=== PATIENT | female | born 1990 | race Two or more races ===

== ENCOUNTER 2018-12-17 14:26 | Emergency (ER) | payer MEDICAID ==
[2018-12-17 15:11] VITALS: BP 147/77
--- NOTE | 2018-12-17 15:23 | ER Document Report ---
ED Medical Screen (RME) - General Chief Complaint: Vaginal Bleeding Stated Complaint: VAGINAL BLEEDING Time Seen by Provider: 12/17/18 15:21 Mode of Arrival: Ambulatory Information source: Patient Notes: 28-year-old female presented to ED for complaint of vaginal pain spotting abdominal pain upper and lower abdomen. She states this started this morning she states she is about 2 months last menstrual period was October 21. She is alert oriented respirations regular and unlabored speaking in full sentences walks with a even steady gait. I have greeted and performed a rapid initial assessment of this patient. A comprehensive ED assessment and evaluation of the patient, analysis of test results and completion of medical decision making process will be conducted by an additional ED providers. Dictation of this chart was performed using voice recognition software; therefore, there may be some unintended grammatical errors. TRAVEL OUTSIDE OF THE [place] IN LAST 30 DAYS: No - Related Data Allergies/Adverse Reactions: No Known Allergies Allergy (Verified 03/02/14 09:31) Past Medical History - Immunizations Immunizations up to date: Yes Hx Diphtheria, Pertussis, Tetanus Vaccination: Yes Physical Exam - Vital signs Vitals: Temp Pulse Resp BP Pulse Ox 98.7 F 90 16 147/77 H 100 12/17/18 15:11 12/17/18 15:11 12/17/18 15:11 12/17/18 15:11 12/17/18 15:11 Course - Vital Signs Vital signs: Temp Pulse Resp BP Pulse Ox 98.7 F 90 16 147/77 H 100 12/17/18 15:11 12/17/18 15:11 12/17/18 15:11 12/17/18 15:11 12/17/18 15:11
== END 2018-12-17 16:25 | disposition left against medical advice (07) ==
LOC: ER 14:26
DX: N93.8 Other specified abnormal uterine and vaginal bleeding (principal); R10.30 Lower abdominal pain, unspecified; R10.10 Upper abdominal pain, unspecified
CPT/HCPCS: 99281

== ENCOUNTER 2019-04-02 20:48 | Emergency (ER) | payer OTHER, MEDICAID ==
[2019-04-02] MEDS ORDERED: ACETAMINOPHEN 325 MG TABLET PO ONE (21:10)
[2019-04-02] MEDS ORDERED: KETOROLAC TROMETHAMINE 60 MG/2 ML SDV IM ONE (21:54)
[2019-04-02] MEDS ORDERED: DEXAMETHASONE SOD PHOS INJ 10 MG/1 ML VIAL IM ONE (21:54)
--- NOTE | 2019-04-02 22:02 | ER Document Report ---
ED ENT - General Chief Complaint: Fever Stated Complaint: FEVER,HEADACHE,SORE THROAT Time Seen by Provider: 04/02/19 21:47 Mode of Arrival: Wheelchair Information source: Patient Notes: 29-year-old female presents to ED for complaint of sore throat headache fever. Her son was diagnosed with strep yesterday. She states that she also feels like she has strep. States that the symptoms started today. She is alert oriented respirations regular and unlabored, taking in full sentences. She is able to walk with a even gait. TRAVEL OUTSIDE OF THE [place] IN LAST 30 DAYS: No - HPI Patient complains to provider of: Throat problem, Other - Headache and body aches Onset: This morning Onset/Duration: Gradual, Better - Better than when she got to Tylenol Quality of pain: Achy Severity: Moderate Pain Level: 3 Context: Recent Illness Location of pain: Throat Associated symptoms: Fever, Headache, Runny nose, Sore throat, Swollen glands Similar symptoms previously: Yes Recently seen / treated by doctor: No - Related Data Allergies/Adverse Reactions: No Known Allergies Allergy (Verified 03/02/14 09:31) Past Medical History - General Information source: Patient - Social History Smoking Status: Never Smoker Frequency of alcohol use: None Drug Abuse: None Lives with: Family Family History: None - patient states no. denies: Arthritis, CAD, CVA, DM, Hyperlipidemia, Hypertension, Malignancy, Thyroid Disfunction - Past Medical History Cardiac Medical History: Reports: None Pulmonary Medical History: Reports: None EENT Medical History: Reports: None Neurological Medical History: Reports: None Endocrine Medical History: Reports: None Renal/ Medical History: Reports: None Malignancy Medical History: Reports: None GI Medical History: Reports: None Musculoskeletal Medical History: Reports None Skin Medical History: Reports None Psychiatric Medical History: Reports: None Traumatic Medical History: Reports: None Infectious Medical History: Reports: None Surgical Hx: Negative Past Surgical History: Reports: None - Immunizations Immunizations up to date: Yes Hx Diphtheria, Pertussis, Tetanus Vaccination: Yes Review of Systems - Review of Systems Constitutional: Chills, Fever, Recent illness EENT: Throat pain Cardiovascular: No symptoms reported Respiratory: No symptoms reported Gastrointestinal: No symptoms reported Genitourinary: No symptoms reported Female Genitourinary: No symptoms reported Musculoskeletal: Muscle pain - Body aches Skin: No symptoms reported Hematologic/Lymphatic: No symptoms reported Neurological/Psychological: Headaches -: Yes All other systems reviewed and negative Physical Exam - Vital signs Vitals: Temp Pulse Resp BP Pulse Ox 102.7 F H 130 H 18 134/68 H 94 04/02/19 20:54 04/02/19 20:54 04/02/19 20:54 04/02/19 20:54 04/02/19 20:54 Interpretation: Normal, Tachycardic, Febrile - General General appearance: Appears well, Alert - HEENT Head: Normocephalic, Atraumatic Eyes: Normal Pupils: PERRL Ears: Normal External canal: Normal Tympanic membrane: Normal Sinus: Normal Nasal: Swelling, Clear rhinorrhea Mouth/Lips: Normal Pharynx: Erythema Neck: Normal - Respiratory Respiratory status: No respiratory distress Chest status: Nontender Breath sounds: Normal Chest palpation: Normal - Cardiovascular Rhythm: Regular Heart sounds: Normal auscultation Murmur: No - Abdominal Inspection: Normal Distension: No distension Bowel sounds: Normal Tenderness: Nontender Organomegaly: No organomegaly - Back Back: Normal, Nontender - Extremities General upper extremity: Normal inspection, Nontender, Normal color, Normal ROM, Normal temperature General lower extremity: Normal inspection, Nontender, Normal color, Normal ROM, Normal temperature, Normal weight bearing. No: Aura's sign - Neurological Neuro grossly intact: Yes Cognition: Normal Orientation: AAOx4 Lesly Coma Scale Eye Opening: Spontaneous Lesly Coma Scale Verbal: Oriented Jackson Coma Scale Motor: Obeys Commands Jackson Coma Scale Total: 15 Speech: Normal Motor strength normal: LUE, RUE, LLE, RLE Sensory: Normal - Psychological Associated symptoms: Normal affect, Normal mood - Skin Skin Temperature: Warm Skin Moisture: Dry Skin Color: Normal Course - Re-evaluation Re-evalutation: 04/03/19 00:22 After performing a Medical Screening Examination, I estimate there is LOW risk for ACUTE GLAUCOMA, TEMPORAL ARTERITIS, MENINGITIS, INCRANIAL HEMORRHAGE, or ISCHEMIC STROKE thus I consider the discharge disposition reasonable. I have reevaluated this patient multiple times and no significant life threatening changes are noted. The patient and I have discussed the diagnosis and risks, and we agree with discharging home with close follow-up with the understanding that symptoms and presentations can change. We also discussed returning to the Emergency Department immediately if new or worsening symptoms occur. We have discussed the symptoms which are most concerning (e.g., changing or worsening symptoms, new numbness or weakness, vomiting, fever) that necessitate immediate return. 04/03/19 00:22 Patient had a elevated temp pulse with a sore throat runny nose congestion. Treated with Decadron and Toradol while awaiting strep test. Strep test came back negative. Patient was discharged home and instructed that if the symptoms became any worse to come back to the emergency room. There was no airway compromise. Patient was also informed that the culture would be done and if it came back positive she would be ordered antibiotics. Patient instructed to follow-up with her primary care doctor. Patient verbalized understanding and agreement with treatment plan before being discharged. Patient was afebrile and drinking fluids as well as ate a popsicle before discharge. Patient tolerated fluids well. - Vital Signs Vital signs: Temp Pulse Resp BP Pulse Ox 98.6 F 98 20 124/62 99 04/02/19 22:50 04/02/19 22:50 04/02/19 22:50 04/02/19 22:50 04/02/19 22:50 Discharge - Discharge Clinical Impression: Viral sore throat Head ache Qualifiers: Headache type: unspecified Headache chronicity pattern: unspecified pattern Intractability: not intractable Qualified Code(s): R51 - Headache Condition: Stable Disposition: HOME, SELF-CARE Instructions: Family Physicians / Practices Additional Instructions: HEADACHE: The physician does not feel that the headache you are experiencing has a serious underlying cause. Most headaches are due to emotional stress, with resultant muscle tension (tension headache). Occasionally, headaches are secondary to changes in the blood vessels of the scalp (vascular headache and migraine headache). Sometimes, a headache is the first symptom of another developing illness, such as a viral infection. You have no evidence of stroke, bleeding, meningitis, or other serious cause of your headache. The treatment of headaches varies with the severity and cause of the pain. Not all headaches need pain shots. In fact, there is evidence that using narcotics for headaches may make them worse in the long run. The physician will determine the therapy that's in your best interest. If you develop a fever, if the headache is different from any you've previo usly experienced, or if the headache progressively worsens, then call your physician at once or go to the emergency room. SORE THROAT: Sore throats may be caused by viruses, bacteria, or fungi. Most are due to a virus, and must get better on their own. Bacterial sore throats, particularly those due to "strep," need treatment with antibiotics. If an antibiotic is prescribed, be sure to take the medication for a full 10 days. Failure to take the antibiotic can result in complications such as rheumatic fever. Sometimes, an injection of antibiotics is given instead of pills or liquid. This single "shot" is equal in effectiveness to the oral medication. To relieve symptoms, take acetaminophen for pain. Sip clear liquids frequently, or eat popsicles or ice chips. Anesthetic sprays or lozenges may help. Make sure the air in the room is not too dry. Avoid using decongestants or antihistamines. Call the doctor if there is no improvement in two days, or if you have difficulty breathing, increasing throat pain, high fever, rash, or frequent vomiting. STEROID MEDICATION: You have been given a medicine of the cortisone/steroid class. This medication is used to control inflammation or allergy. It is usually only given for a short period of time, until the acute process subsides. There are usually no side effects from short-term use of cortisone-like medications. Some persons feel an increased sense of well-being and are not sleepy at bedtime. Long-term use of cortisone medications is best avoided, unless required for a severe condition. If your condition does not remit, or relapses after the course of corticosteroid medication, you should consult your physician. USE OF DIPHENHYDRAMINE: Diphenhydramine (Benadryl) is an antihistamine and has been recommended to help treat your headache and to prevent side effects of other medications used to treat headaches. The medication can be repeated four times daily. Age Elixir (12.5 mg/tsp) 25 mg pill adult 1-2 tabs Antihistamines may cause drowsiness, especially with the first dose. Do not operate machinery or drive while under the effects of the medication. Do not combine the medication with alcohol, or with any other medication without talking to your doctor. ANTINAUSEA MEDICATION: You have been given a medication to suppress nausea and vomiting. This type of medication can be given as a shot, pill, or suppository. It will usually last for many hours. Pills and shots usually last six to eight hours, suppositories last about 12 hours. For the typical illness, only one or two doses of the medication may be necessary. Mild lightheadedness may occur. This type of medicine can cause drowsiness . Do not drive or operate dangerous machinery while under its influence. Do not mix with alcohol. See your doctor at once if you have muscle spasms or tightness, or uncontrollable motions (particularly of the neck, mouth, or jaw). Persistent vomiting or severe lightheadedness should also be evaluated by the physician. COMPAZINE FOR HEADACHE: You have received therapy for headaches, using Compazine. This treatment is dramatically successful in relieving the headache in about 50 percent of cases. When it works, it provides a rapid method of eliminating the headache without resorting to narcotics (and the problems associated with them). Most patients still feel fully alert after the Compazine, but others may be slightly drowsy. It's best not to drive or work with machinery for six to eight hours. Do not take alcohol or other medication unless you discuss it with the doctor. If you develop tightness and spasms in your muscles, especially the neck and tongue, you should return. This is a side effect which can be treated. TORADOL INJECTION: You have been given an injection of ketorolac tromethamine (Toradol). This is an excellent, safe drug for pain control. It also has potent antiinflammatory action. You should have significant pain relief within about one hour. Toradol is not addicting and is non-sedating. It does not interfere with driving or work. Call or return if you develop itching, hives, shortness of breath, or rash. FOLLOW-UP CARE: If you have been referred to a physician for follow-up care, call the physicians office for an appointment as you were instructed or within the next two days. If you experience worsening or a significant change in your symptoms, notify the physician immediately or return to the Emergency Department at any time for re-evaluation. Prescriptions: Prochlorperazine Maleate [Compazine 10 mg Tablet] 10 mg PO Q6HP PRN #10 tablet PRN Reason: Forms: Elevated Blood Pressure, Return to Work
[2019-04-02] MEDS ORDERED: DIPHENHYDRAMINE HCL 50 MG CAPSULE PO ONE (22:47)
[2019-04-02] MEDS ORDERED: PROCHLORPERAZINE MALEATE 10 MG TABLET PO ONE (22:47)
[2019-04-02 22:54] VITALS: BP 124/62
== END 2019-04-02 23:00 | disposition home or self-care (01) ==
LOC: ER 20:48
DX: J02.9 Acute pharyngitis, unspecified (principal); B97.89 Other viral agents as the cause of diseases classified elsewhere; R51 Headache; R50.9 Fever, unspecified; R09.89 Other specified symptoms and signs involving the circulatory and respiratory systems
CPT/HCPCS: 99283; 96372; 87070; 87880; J1885; S0183; J1100

== ENCOUNTER 2020-03-16 14:22 | Emergency (ER) | payer BC, MEDICAID, OTHER ==
[2020-03-16 14:52] VITALS: BP 128/78
[2020-03-16] MEDS ORDERED: ACETAMINOPHEN 325 MG TABLET PO ONE (15:12)
[2020-03-16] MEDS ORDERED: NORMAL SALINE 1000 ML 1,000 ML IV ONE (15:30)
[2020-03-16] MEDS ORDERED: DEXAMETHASONE 4 MG TABLET PO ONE (15:30)
--- NOTE | 2020-03-16 15:33 | ER Document Report ---
ED ENT - General Chief Complaint: Sore Throat Stated Complaint: SORE THROAT,FEVER Time Seen by Provider: 03/16/20 15:12 Notes: 29-year-old female with no reported past medical history presenting today with sore throat for 1 day. States that this has presented in the past 2 to 3 years ago presented the same way with fever. She does not feel feverish. States she does have chills. She denies any cough, chest pain or additional symptoms at this time. Last took a ibuprofen this morning at 530. TRAVEL OUTSIDE OF THE [place] IN LAST 30 DAYS: No - Related Data Allergies/Adverse Reactions: No Known Allergies Allergy (Verified 03/16/20 14:49) Past Medical History - Social History Smoking Status: Never Smoker Chew tobacco use (# tins/day): No Frequency of alcohol use: None Drug Abuse: None Family History: None - patient states no. denies: Arthritis, CAD, CVA, DM, Hyperlipidemia, Hypertension, Malignancy, Thyroid Disfunction Patient has homicidal ideation: No - Past Medical History Cardiac Medical History: Reports: Hx Hypertension - Renal/ Medical History: Denies: Hx Peritoneal Dialysis - Immunizations Immunizations up to date: Yes Hx Diphtheria, Pertussis, Tetanus Vaccination: Yes Review of Systems - Review of Systems Constitutional: See HPI EENT: See HPI Cardiovascular: No symptoms reported Respiratory: No symptoms reported Gastrointestinal: No symptoms reported Genitourinary: No symptoms reported Female Genitourinary: No symptoms reported Musculoskeletal: No symptoms reported Skin: No symptoms reported Hematologic/Lymphatic: No symptoms reported Neurological/Psychological: No symptoms reported Physical Exam - Vital signs Vitals: Temp 103.2 F H 03/16/20 14:41 Interpretation: Tachycardic, Febrile - Notes Notes: Adult General: GENERAL: Alert, interacts well. No acute distress HEAD: Normocephalic, atraumatic EYES: Pupils equal, round and reactive to light. Extraocular movements intact. ENT: Oral mucosa moist, tongue midline. Bilateral swollen tonsils with exudate. Airway patent. Nares patent, sinuses nontender, ear canals unremarkable, TMs intact. No Trismus. NECK: Full range of motion. Supple. Trachea midline. No lymphadenopathy. LUNGS: Clear to auscultation bilaterally, no wheezes, rales, or rhonchi. No respiratory distress. Nontender chest wall. HEART: Regular rate and rhythm. No murmurs, rubs or gallops. ABDOMEN: Soft, nontender. Nondistended. Bowel sounds present in all 4 quadrants. GENITOURINARY: Deferred EXTREMITIES: Moves all 4 extremities spontaneously. No cyanosis. BACK: No cervical, thoracic, lumbar midline tenderness. Moves all extremities with full range of motion. NEUROLOGICAL: Alert and oriented x3. Normal speech. Strength 5/ 5 in all extremities. PSYCH: Normal affect, normal mood. SKIN: Warm, dry, normal turgor. No rashes or lesions noted. Course - Re-evaluation Re-evalutation: 03/16/20 17:02 Patient's temperature has decreased down to 98.6 after giving her tylenol. Heart rate has decreased significantly to 96 after IV fluids. Patient reports that she is feeling much better. Does not feel fevers or chills. Informed her that her strep test is positive. I have gone ahead and ordered her penicillin IM. Recommend she takes tylenol 1000mg tid. I discussed return precautions with the patient to include worsening symptoms or development of new symptoms. Patient acknowledges and verbalizes understanding of instructions and plan. All questions answered - Vital Signs Vital signs: Temp Pulse Resp BP Pulse Ox 98.6 F 96 128/78 H 100 03/16/20 16:52 03/16/20 16:52 03/16/20 14:43 03/16/20 14:43 Discharge - Discharge Clinical Impression: Strep throat Condition: Stable Disposition: HOME, SELF-CARE Instructions: Acetaminophen, Fever ([facility]), Penicillin V K ([facility]), Strep Throat ([facility]) Additional Instructions: You have been treated for strep throat. Please continue to take Tylenol 1000 mg every 6 4 to 6 hours for your fever. Please continue to drink plenty of fluids. Please return to the emergency department if you have worsening symptoms or development of new symptoms.
[2020-03-16] MEDS ORDERED: PENICILLIN G BENZATHINE 1.2 MILLION UNIT/2 ML DISP.SYRIN IM ONE (17:00)
== END 2020-03-16 17:41 | disposition home or self-care (01) ==
LOC: ER 14:22
DX: J02.0 Streptococcal pharyngitis (principal); R50.9 Fever, unspecified
CPT/HCPCS: 99284; 96372; 87880; J8540; J0561; J7030

== ENCOUNTER 2020-05-02 19:51 | Emergency (ER) | payer BC ==
--- NOTE | 2020-05-02 20:24 | ER Document Report ---
ED Medical Screen (RME) - General Chief Complaint: Suicidal Ideation Stated Complaint: SUICIDE IDEATION Time Seen by Provider: 05/02/20 20:12 Notes: HPI: 30-year-old female presenting for suicidal ideation and thoughts of harming herself today. Patient is in the middle of a separation from her and states they were arguing today and she felt very depressed about it and made several small cuts to the left wrist. States she has never attempted to harm herself in the past. Denies drugs or alcohol. Denies other significant medical history. PHYSICAL EXAMINATION: 3 superficial cuts on the left wrist are noted. Patient is up-to-date on her tetanus vaccination. She is tearful and remorseful in the room during our discussion. Will place her on 24-hour hold. discussed with HELEN Abbott I have greeted and performed a rapid initial assessment of this patient. A comprehensive ED assessment and evaluation of the patient, analysis of test results and completion of medical decision making process will be conducted by an additional ED providers. TRAVEL OUTSIDE OF THE [place] IN LAST 30 DAYS: No - Related Data Allergies/Adverse Reactions: No Known Allergies Allergy (Verified 03/16/20 14:49) Past Medical History - Past Medical History Cardiac Medical History: Reports: Hx Hypertension - Renal/ Medical History: Denies: Hx Peritoneal Dialysis - Immunizations Immunizations up to date: Yes Hx Diphtheria, Pertussis, Tetanus Vaccination: Yes Physical Exam - Vital signs Vitals: Temp Pulse Resp BP Pulse Ox 98.1 F 101 H 20 153/97 H 98 05/02/20 19:55 05/02/20 19:55 05/02/20 19:55 05/02/20 19:55 05/02/20 19:55 Course - Vital Signs Vital signs: Temp Pulse Resp BP Pulse Ox 98.1 F 101 H 20 153/97 H 98 05/02/20 19:55 05/02/20 19:55 05/02/20 19:55 05/02/20 19:55 05/02/20 19:55
[2020-05-02 20:59] LABS: APPEARANCE,URINE CLEAR; BILIRUBIN,URINE NEGATIVE (NEGATIVE); COLOR,URINE YELLOW; GLUCOSE, URINE NEGATIVE (NEGATIVE); KETONES,URINE NEGATIVE (NEGATIVE); LEUKOCYTE ESTERASE,URINE NEGATIVE (NEGATIVE); NITRITE,URINE NEGATIVE (NEGATIVE); PROTEIN,URINE NEGATIVE (NEGATIVE); URINE SPECIFIC GRAVITY 1.025; UROBILINOGEN,URINE NEGATIVE mg/dL (<2.0)
[2020-05-02 21:10] LABS: ABSOLUTE MONOCYTES (AUTO) 0.5 10^3/uL (0.1-1.4); ABSOLUTE NEUT (AUTO) 8.5 10^3/uL (1.7-8.2); BASOPHILS % (AUTO) 0.2 % (0-2); HEMOGLOBIN 12.8 g/dL (12.0-15.5); RED BLOOD COUNT 4.94 10^6/uL (3.72-5.28); TOTAL CELLS COUNTED % (AUTO) 100 %
[2020-05-02 21:18] LABS: URINE AMPHETAMINES SCREEN NEGATIVE; URINE BARBITURATES SCREEN NEGATIVE; URINE BENZODIAZEPINES SCREEN NEGATIVE; URINE COCAINE SCREEN NEGATIVE; URINE MARIJUANA (THC) SCREEN NEGATIVE; URINE METHADONE SCREEN NEGATIVE; URINE PHENCYCLIDINE SCREEN NEGATIVE
[2020-05-02 21:29] LABS: ALBUMIN 3.9 g/dL (3.5-5.0); ALKALINE PHOSPHATASE 90 U/L (38-126); ANION GAP 7 (5-19); ASPARTATE AMINO TRANSFERASE 22 U/L (14-36); BILIRUBIN,DIRECT 0.2 mg/dL (0.0-0.4); BILIRUBIN,TOTAL 0.6 mg/dL (0.2-1.3); BLOOD UREA NITROGEN 12 mg/dL (7-20); CALCIUM 9.6 mg/dL (8.4-10.2); CARBON DIOXIDE 28 mmol/L (22-30); CHLORIDE 105 mmol/L (98-107); GLUCOSE 107 mg/dL (75-110); POTASSIUM 4.4 mmol/L (3.6-5.0); TOTAL PROTEIN 6.8 g/dL (6.3-8.2)
[2020-05-02 21:31] LABS: ACETAMINOPHEN < 10 ug/mL (10-30); ALCOHOL < 10 mg/dL (NONE DETECTED); SALICYLATE < 1.0 mg/dL (2.0-20.0)
[2020-05-02 21:43] LABS: ABSOLUTE LYMPHOCYTES (AUTO) 2.2 10^3/uL (0.5-4.7); EOSINOPHILS % (AUTO) 0.4 % (0-6); HEMATOCRIT 38.7 % (36.0-47.0); LYMPHOCYTES % (AUTO) 19.6 % (13-45); MEAN CORPUSCULAR HEMOGLOBIN 25.9 pg (27.0-33.4); MEAN CORPUSCULAR VOLUME 78 fl (80-97); MONOCYTES % (AUTO) 4.4 % (3-13); PLATELET COUNT 289 10^3/uL (150-450); SEGMENTED NEUTROPHILS % (AUTO) 75.4 % (42-78); WHITE BLOOD COUNT 11.3 10^3/uL (4.0-10.5)
--- NOTE | 2020-05-02 22:00 | ER Document Report ---
ED Psych Disorder / Suicide - General Mode of Arrival: Ambulatory Information source: Patient TRAVEL OUTSIDE OF THE [place] IN LAST 30 DAYS: No - HPI Patient complains to provider of: Suicidal ideation, Self injury Onset: Just prior to arrival Onset was: Gradual Quality of pain: No pain Suicide Risk Factors: Depressed Situational problems related to: Spouse Suicide Attempt Method: Stabbing/Cutting Injury to: Wrist Associated symptoms: Depressed Similar symptoms previously: No Recently seen / treated by doctor: No <JONAS LOERA - Last Filed: 05/03/20 07:30> <LOIS LUNA - Last Filed: 05/03/20 14:53> <KATHLEEN MEJIA - Last Filed: 05/03/20 15:07> - General Chief Complaint: Suicidal Ideation Stated Complaint: SUICIDE IDEATION Time Seen by Provider: 05/02/20 20:12 Primary Care Provider: [facility] [Provider Group] - Follow up in 3-5 days [facility] [Outside] - Follow up as needed Notes: Patient reports suicidal ideation. Patient reports feeling depressed with pending separation from spouse. Patient with several superficial lacerations to the left wrist. Patient denies any previous history of mental illness. Patient is not currently on any medications. (JONAS LOERA) - Related Data Allergies/Adverse Reactions: No Known Allergies Allergy (Verified 03/16/20 14:49) Past Medical History - General Information source: Patient - Social History Smoking Status: Never Smoker Frequency of alcohol use: None Drug Abuse: None Occupation: None Lives with: Spouse/Significant other Family History: None - patient states no. denies: Arthritis, CAD, CVA, DM, Hyperlipidemia, Hypertension, Malignancy, Thyroid Disfunction - Past Medical History Cardiac Medical History: Reports: Hx Hypertension - Renal/ Medical History: Denies: Hx Peritoneal Dialysis Surgical Hx: Negative - Immunizations Immunizations up to date: Yes Hx Diphtheria, Pertussis, Tetanus Vaccination: Yes <JONAS LOERA - Last Filed: 05/03/20 07:30> Review of Systems - Review of Systems Constitutional: No symptoms reported EENT: No symptoms reported Cardiovascular: No symptoms reported Respiratory: No symptoms reported Gastrointestinal: No symptoms reported Genitourinary: No symptoms reported Female Genitourinary: No symptoms reported Musculoskeletal: No symptoms reported Skin: Other - Superficial cuts to left wrist Hematologic/Lymphatic: No symptoms reported Neurological/Psychological: Suicidal ideation <JONAS LOERA - Last Filed: 05/03/20 07:30> Physical Exam <JONAS LOERA - Last Filed: 05/03/20 07:30> - Vital signs Vitals: Temp Pulse Resp BP Pulse Ox 98.1 F 101 H 20 153/97 H 98 05/02/20 19:55 05/02/20 19:55 05/02/20 19:55 05/02/20 19:55 05/02/20 19:55 - Notes Notes: PHYSICAL EXAMINATION: GENERAL: Well-appearing and in no acute distress. HEAD: Atraumatic, normocephalic. EYES: sclera anicteric, conjunctiva are normal. ENT: nares patent. Moist mucous membranes. NECK: Normal range of motion, supple without lymphadenopathy LUNGS: CTAB and equal. No wheezes rales or rhonchi. HEART: Regular rate and rhythm without murmurs ABDOMEN: Soft, nontender, normal bowel sounds, no guarding. EXTREMITIES: Normal range of motion, no pitting edema. No cyanosis. BACK: No CVA tenderness NEUROLOGICAL: Cranial nerves grossly intact. Normal speech. PSYCH: Normal mood, normal affect. Mildly despondent SKIN: Warm, Dry, normal turgor, superficial linear abrasions to volar aspect of left wrist (JONAS LOERA) Course - Laboratory Result Diagrams: 05/02/20 21:00 05/02/20 21:00 - EKG Interpretation by [place] EKG shows normal: Sinus rhythm Rate: Normal When compared to previous EKG there are: Previous EKG unavailable <JONAS LOERA - Last Filed: 05/03/20 07:30> - Laboratory Result Diagrams: 05/02/20 21:00 05/02/20 21:00 <LOIS LUNA - Last Filed: 05/03/20 14:53> - Laboratory Result Diagrams: 05/02/20 21:00 05/02/20 21:00 <KATHLEEN MEJIA - Last Filed: 05/03/20 15:07> - Re-evaluation Re-evalutation: 05/02/20 21:59 Patient presents voluntarily with suicidal ideation with self-inflicted superficial linear abrasions to the left forearm. Patient appears medically clear for discharge or transfer pending behavioral health team disposition. (JONAS LOERA) - Vital Signs Vital signs: Temp Pulse Resp BP Pulse Ox 98.2 F 70 20 140/72 H 99 05/03/20 08:26 05/03/20 08:26 05/03/20 08:26 05/03/20 08:26 05/03/20 08:26 - Laboratory Laboratory results interpreted by me: 05/02/20 05/02/20 21:00 21:00 WBC 11.3 H MCV 78 L MCH 25.9 L RDW 16.0 H Absolute Neuts (auto) 8.5 H Salicylates < 1.0 L Acetaminophen < 10 L 05/03/20 07:30 Labs- All tests 24 hr 05/02/20 05/02/20 05/02/20 20:30 20:30 21:00 WBC 11.3 H RBC 4.94 Hgb 12.8 Hct 38.7 MCV 78 L MCH 25.9 L MCHC 33.0 RDW 16.0 H Plt Count 289 Lymph % (Auto) 19.6 [place] % (Auto) 4.4 Eos % (Auto) 0.4 Baso % (Auto) 0.2 Absolute Neuts (auto) 8.5 H Absolute Lymphs (auto) 2.2 Absolute Monos (auto) 0.5 Absolute Eos (auto) 0.0 Absolute Basos (auto) 0.0 Seg Neutrophils % 75.4 Sodium Potassium Chloride Carbon Dioxide Anion Gap BUN Creatinine Est GFR ( Amer) Est GFR (MDRD) Non-Af Glucose Calcium Total Bilirubin Direct Bilirubin Neonat Total Bilirubin Neonat Direct Bilirubin Neonat Indirect Bili AST ALT Alkaline Phosphatase Total Protein Albumin Serum HCG, Qual Urine Color YELLOW Urine Appearance CLEAR Urine pH 6.0 Ur Specific [place] 1.025 Urine Protein NEGATIVE Urine Glucose (UA) NEGATIVE Urine Ketones NEGATIVE Urine Blood NEGATIVE Urine Nitrite NEGATIVE Urine Bilirubin NEGATIVE Urine Urobilinogen NEGATIVE Ur Leukocyte Esterase NEGATIVE Urine WBC (Auto) 0 Urine RBC (Auto) 1 Squamous Epi Cells Auto <1 Urine Mucus (Auto) FEW Urine Ascorbic Acid NEGATIVE Salicylates Urine Opiates Screen NEGATIVE Urine Methadone Screen NEGATIVE Acetaminophen Ur Barbiturates Screen NEGATIVE Ur Phencyclidine Scrn NEGATIVE Ur Amphetamines Screen NEGATIVE U Benzodiazepines Scrn NEGATIVE Urine Cocaine Screen NEGATIVE U Marijuana (THC) Screen NEGATIVE Serum Alcohol 05/02/20 05/02/20 21:00 21:00 WBC RBC Hgb Hct MCV MCH MCHC RDW Plt Count Lymph % (Auto) [place] % (Auto) Eos % (Auto) Baso % (Auto) Absolute Neuts (auto) Absolute Lymphs (auto) Absolute Monos (auto) Absolute Eos (auto) Absolute Basos (auto) Seg Neutrophils % Sodium 139.6 Potassium 4.4 Chloride 105 Carbon Dioxide 28 Anion Gap 7 BUN 12 Creatinine 0.79 Est GFR ( Amer) > 60 Est GFR (MDRD) Non-Af > 60 Glucose 107 Calcium 9.6 Total Bilirubin 0.6 Direct Bilirubin 0.2 Neonat Total Bilirubin Not Reportable Neonat Direct Bilirubin Not Reportable Neonat Indirect Bili Not Reportable AST 22 ALT 20 Alkaline Phosphatase 90 Total Protein 6.8 Albumin 3.9 Serum HCG, Qual NEGATIVE Urine Color Urine Appearance Urine pH Ur Specific [place] Urine Protein Urine Glucose (UA) Urine Ketones Urine Blood Urine Nitrite Urine Bilirubin Urine Urobilinogen Ur Leukocyte Esterase Urine WBC (Auto) Urine RBC (Auto) Squamous Epi Cells Auto Urine Mucus (Auto) Urine Ascorbic Acid Salicylates < 1.0 L Urine Opiates Screen Urine Methadone Screen Acetaminophen < 10 L Ur Barbiturates Screen Ur Phencyclidine Scrn Ur Amphetamines Screen U Benzodiazepines Scrn Urine Cocaine Screen U Marijuana (THC) Screen Serum Alcohol < 10 (JONAS LOERA) - EKG Interpretation by Me Additional EKG results interpreted by me: 05/03/20 07:30 Sinus rhythm with a rate of 84, QTc 445, no acute ischemic changes (JONAS LOERA) Discharge <JONAS LOERA - Last Filed: 05/03/20 07:30> <LOIS LUNA - Last Filed: 05/03/20 14:53> <KATHLEEN MEJIA - Last Filed: 05/03/20 15:07> - Discharge Clinical Impression: Depression Qualifiers: Depression Type: unspecified Qualified Code(s): F32.9 - Major depressive dis order, single episode, unspecified Condition: Stable Disposition: HOME, SELF-CARE Additional Instructions: You have evaluated both medical and behavioral health teams have been deemed appropriate for discharge. You are recommended to follow-up with outpatient mental health services for therapy. You have been vital local resource list of area providers including mobile crisis contact information. Please make an appointment in the next 3 to 5 days with your chosen mental health provider. DEPRESSION: Your evaluation reveals that you have mental depression. While symptoms may be vague, they often include disturbance of sleep, fatigue, loss of appetite, and general loss of interest in life. While depression may be a side effect of drugs, or a reaction to a major change in your life, many cases have no known cause. If depression is acute, and related to a major loss in your life, you can expect it to clear completely with time. If you have been depressed a long time, are prone to repeated bouts of depression or low mood, or have been thinking of suicide, get help. Depression can be treated with anti-depressant medication and counselling. Long-term depression will often take a few weeks to clear, even with appropriate medication. Follow-up care is important. SUICIDAL IDEATION: Suicidal ideation is a common medical term for thoughts about suicide, which may be as detailed as a formulated plan, without the suicidal act itself. Although most people who undergo suicidal ideation do not commit suicide, some go on to make suicide attempts. The range of suicidal ideation varies greatly from fleeting to detailed planning, role playing, and unsuccessful attempts. While thoughts about suicide are common, most people do not carry out serious actions to commit suicide. Based upon your evaluation and discussion with you, we do not believe you are currently at risk to act upon your thoughts of suicide. You have agreed to return to the Emergency Department, at any time, if you feel inclined to act upon your suicidal thoughts. FOLLOW-UP CARE: If you have been referred to a physician for follow-up care, call the physicians office for an appointment as you were instructed or within the next two days. If you experience worsening or a significant change in your symptoms, notify the physician immediately or return to the Emergency Department at any time for re-evaluation. Referrals: [facility] [Outside] - Follow up as needed [facility] [Provider Group] - Follow up in 3-5 days
--- NOTE | 2020-05-03 02:15 | EKG REPORT ---
SEVERITY:- NORMAL ECG - SINUS RHYTHM : Confirmed by: Camelia Samaniego MD 03-May-2020 02:13:59
--- NOTE | 2020-05-03 14:53 | PSYCHOLOGICAL NOTE ---
Psych Note - Psych Note Date seen by psych provider: 05/03/20 Time seen by psych provider: 12:35 Psych Note: Reason for Consult: Suicidal ideation Patient presented to [facility] ED disclosing she had thoughts of wanting to . She denies having any plan and states she does not want to , that the thoughts scare her so she drove herself to the hospital. Patient identifies trigger is going through separation from . She disclosed she tends to push people away to protect herself, so has little support other than her . She stated her is the one that wanted the separation because he "felt like we have our own personal issues we need to work on for." She stated her has been telling her she needs to go to therapy but has resisted because she would just "wake up the next morning and not think about the stuff that was upsetting me. It was like a new day and just pushed it all away...until last night all my emotions caught up with me." She continued to disclose that she has trauma history and was in foster care. She stated she does not want to , that "I love life, and I have two children...those thoughts scared me." She confirms she would like to go to therapy. IVC Criteria per [place] 122C Dangerous to others Within the relevant past the individual No has inflicted or attempted to inflict or threatened to inflict serious bodily harm on another AND No that there is a reasonable probability that this conduct will be repeated. OR No has acted in such a way as to create a substantial risk of serious bodily harm to another AND No that there is a reasonable probability that this conduct will be repeated. OR No has engaged in extreme destruction of property AND No that there is a reasonable probability that this conduct will be repeated. Previous episodes of dangerousness to others, when applicable, may be considered when determining reasonable probability of future dangerous conduct. Clear, cogent, and convincing evidence that an individual has committed a homicide in the relevant past is prima facie evidence of dangerousness to others. Dangerous to self Within the relevant past the individual has done any of the following: acted in such a way as to show ALL of the following: No The individual would be unable without care, supervision, and the continued assistance of others not otherwise available, to exercise self- control, judgment, and discretion in the conduct of the individual's daily re sponsibilities and social relations or to satisfy the individual's need for nourishment, personal or medical care, prison, or self-protection and safety. AND No There is a reasonable probability of the individual suffering serious physical debilitation within the near future unless adequate treatment is given. A showing of behavior that is grossly irrational, of actions that the individual is unable to control, of behavior that is grossly inappropriate to the situation, or of other evidence of severely impaired insight and judgment shall create a prima facie inference that the individual is unable to care for himself or herself. OR No has attempted suicide or threatened suicide AND No that there is a reasonable probability of suicide unless adequate treatment is given OR No has mutilated himself or herself or attempted to mutilate himself or herself AND No that there is a reasonable probability of serious self-mutilation unless adequate treatment is given. NOTE: Previous episodes of dangerousness to self, when applicable, may be considered when determining reasonable probability of physical debilitation, suicide, or self-mutilation. Impression/Plan: Patient is recommended for rescind of 24 hour petition for evaluation and is cleared from acute psychiatric services; paperwork is signed and placed in patient's chart. Dr. Cardona was consulted on the care and management of this patient; attending physician is in agreement with recommendations and disposition.
[2020-05-03 15:18] VITALS: BP 130/68
--- NOTE | 2020-05-03 17:00 | ER Document Report ---
Doctor's Note Notes: Patient reevaluated prior to discharge. She has been medically cleared. Mental health has also cleared her. Patient reports she feels safe going home. She has the appropriate resources needed. She understands ED return precautions.
== END 2020-05-03 15:31 | disposition home or self-care (01) ==
LOC: ER 19:51
DX: F32.9 Major depressive disorder, single episode, unspecified (principal); R45.851 Suicidal ideations; S61.512A Laceration without foreign body of left wrist, initial encounter; X83.8XXA Intentional self-harm by other specified means, initial encounter
CPT/HCPCS: 36415; 80053; 80307; 81001; 84703; 85025; 93005; 93010; 99285

== ENCOUNTER 2020-06-14 19:05 | Inpatient (IN) | payer BC ==
[2020-06-14] MEDS ORDERED: RINGERS SOLUTION,LACTATED 1,000 ML IV ONE ×2 (19:17→20:45)
[2020-06-14] MEDS ORDERED: NALOXONE HCL INJ/PF 0.4 MG/1 ML SDV IV ONE (19:19)
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
[2020-06-14 19:42] LABS: ABSOLUTE LYMPHOCYTES (AUTO) 1.5 10^3/uL (0.5-4.7); ABSOLUTE MONOCYTES (AUTO) 0.6 10^3/uL (0.1-1.4); ABSOLUTE NEUT (AUTO) 11.9 10^3/uL (1.7-8.2); BASOPHILS % (AUTO) 0.3 % (0-2); EOSINOPHILS % (AUTO) 0.1 % (0-6); HEMATOCRIT 35.5 % (36.0-47.0); HEMOGLOBIN 12.2 g/dL (12.0-15.5); LYMPHOCYTES % (AUTO) 10.8 % (13-45); MEAN CORPUSCULAR HEMOGLOBIN 26.8 pg (27.0-33.4); MEAN CORPUSCULAR HGB CONC 34.4 g/dL (32.0-36.0); MEAN CORPUSCULAR VOLUME 78 fl (80-97); MONOCYTES % (AUTO) 4.5 % (3-13); PLATELET COUNT 262 10^3/uL (150-450); RED BLOOD COUNT 4.56 10^6/uL (3.72-5.28); RED CELL DISTRIBUTION WIDTH 14.6 % (11.5-14.0); SEGMENTED NEUTROPHILS % (AUTO) 84.3 % (42-78); TOTAL CELLS COUNTED % (AUTO) 100 %; WHITE BLOOD COUNT 14.1 10^3/uL (4.0-10.5)
[2020-06-14 20:04] LABS: ALBUMIN 3.2 g/dL (3.5-5.0); ALKALINE PHOSPHATASE 95 U/L (38-126); ANION GAP 12 (5-19); ASPARTATE AMINO TRANSFERASE 21 U/L (14-36); BILIRUBIN,DIRECT 0.5 mg/dL (0.0-0.4); BILIRUBIN,TOTAL 0.7 mg/dL (0.2-1.3); BLOOD UREA NITROGEN 8 mg/dL (7-20); CALCIUM 8.6 mg/dL (8.4-10.2); CARBON DIOXIDE 21 mmol/L (22-30); CHLORIDE 100 mmol/L (98-107); CREATINE KINASE 107 U/L (30-135); POTASSIUM 3.4 mmol/L (3.6-5.0); TOTAL PROTEIN 5.8 g/dL (6.3-8.2)
[2020-06-14 20:13] LABS: ACETAMINOPHEN < 10 ug/mL (10-30); ALCOHOL < 10 mg/dL (NONE DETECTED); SALICYLATE < 1.0 mg/dL (2.0-20.0)
[2020-06-14 20:15] LABS: GLUCOSE 504 mg/dL (75-110)
[2020-06-14 20:19] LABS: FREE T4 (FREE THYROXINE) 2.32 ng/dL (0.78-2.19)
[2020-06-14 20:33] LABS: THYROID STIMULATING HORMONE 2.53 uIU/mL (0.47-4.68)
[2020-06-14 21:08] LABS: APPEARANCE,URINE CLEAR; BILIRUBIN,URINE NEGATIVE (NEGATIVE); COLOR,URINE STRAW; GLUCOSE, URINE NEGATIVE (NEGATIVE); KETONES,URINE TRACE mg/dL (NEGATIVE); LEUKOCYTE ESTERASE,URINE NEGATIVE (NEGATIVE); NITRITE,URINE NEGATIVE (NEGATIVE); PROTEIN,URINE NEGATIVE (NEGATIVE); URINE SPECIFIC GRAVITY 1.006; UROBILINOGEN,URINE NEGATIVE mg/dL (<2.0)
[2020-06-14 21:21] LABS: URINE AMPHETAMINES SCREEN NEGATIVE; URINE BARBITURATES SCREEN NEGATIVE; URINE BENZODIAZEPINES SCREEN NEGATIVE; URINE COCAINE SCREEN NEGATIVE; URINE MARIJUANA (THC) SCREEN NEGATIVE; URINE METHADONE SCREEN NEGATIVE; URINE PHENCYCLIDINE SCREEN NEGATIVE
--- NOTE | 2020-06-14 21:23 | RADIOLOGY REPORT (SQ) ---
EXAM DESCRIPTION: Site: RP: XR CHEST 1 VIEW CLINICAL HISTORY: 30 years Female; unresponsive; COMPARISON: None. FINDINGS: Lungs: Lungs are clear, with no focal infiltrate, pneumothorax, or pleural effusion. Mediastinum: Mediastinum is within normal limits for this positioning. Bones: Bony structures are unremarkable. IMPRESSION: 1. No acute pulmonary findings.
[2020-06-14 21:47] LABS: VENOUS BLOOD BASE EXCESS -0.3 mmol/L; VENOUS BLOOD HCO3 24.9 mmol/L (20-32); VENOUS BLOOD PCO2 43.5 mmHg (35-63); VENOUS BLOOD PH 7.38 (7.30-7.42)
--- NOTE | 2020-06-14 21:50 | RADIOLOGY REPORT (SQ) ---
CT head without contrast on 06/14/2020 at 9:07 PM CLINICAL INDICATION: Unresponsive TECHNIQUE: Multiple axial images are obtained throughout the head without the administration of contrast. This exam was performed according to our departmental dose-optimization program, which includes automated exposure control, adjustment of the mA and/or kV according to patient size and/or use of iterative reconstruction technique. Total DLP is 963.97 mGy*cm. COMPARISON: None FINDINGS: There is no hydrocephalus. There is no CT evidence of acute infarct. There is no hemorrhage. There are no abnormal extra-axial fluid collections. There is no mass, mass effect or midline shift. No bony abnormality is noted. Mucous retention cysts are noted in the maxillary sinuses. IMPRESSION: No acute intracranial abnormality.
[2020-06-14] MEDS: POTASSI CL 20 MEQ/50 ML RIDER 20 MEQ/50 ML RTUPB IV SCH (22:27)
[2020-06-14] MEDS ORDERED: ETOMIDATE INJ/PF 20 MG/10 ML SDV IV ONE (22:45)
[2020-06-14] MEDS ORDERED: SUCCINYLCHOLINE CHLORIDE INJ 200 MG/10 ML VIAL IV ONE (22:45)
--- NOTE | 2020-06-14 22:57 | EKG REPORT ---
SEVERITY:- OTHERWISE NORMAL ECG - SINUS TACHYCARDIA : Confirmed by: Shefali Dominique 14-Jun-2020 22:56:36
--- NOTE | 2020-06-14 22:59 | EKG REPORT ---
SEVERITY:- OTHERWISE NORMAL ECG - SINUS TACHYCARDIA : Confirmed by: Shefali Dominique 14-Jun-2020 22:59:20
[2020-06-14] MEDS ORDERED: MIDAZOLAM 2 MG/2 ML INJ IV ONE (23:25)
[2020-06-15] MEDS ORDERED: GLUCAGON,HUMAN RECOMB 1 MG INJ SUBCUT PRN (00:26)
[2020-06-15] MEDS ORDERED: DEXTROSE 50%-WATER 25 GM/50 ML DISP.SYRIN IV PRN ×2 (00:26)
[2020-06-15] MEDS ORDERED: DEXTROSE 40% GEL 15 GM TUBE PO PRN ×2 (00:26)
--- NOTE | 2020-06-15 00:26 | RADIOLOGY REPORT (SQ) ---
EXAM DESCRIPTION: Site: RP: XR CHEST 1 VIEW CLINICAL HISTORY: 30 years Female; Intubation; FINDINGS: AP chest at 2339. Since earlier today at 2031, endotracheal tube has been placed, tip approximately 1 cm above pam. Well-inflated. No pneumothorax or pleural effusion. No mediastinal widening or shift. IMPRESSION: Intubated, tip estimated 1 cm above pam
[2020-06-15] MEDS: POTASSI CL 20 MEQ/50 ML RIDER 20 MEQ/50 ML RTUPB IV SCH (00:40)
[2020-06-15 02:10] LABS: ARTERIAL BLOOD BASE EXCESS -2.2 mmol/L; ARTERIAL BLOOD H2CO3 1.38 mmol/L (1.05-1.35); ARTERIAL BLOOD HCO3 23.8 mmol/L (20-24); ARTERIAL BLOOD O2 SATURATION 97.9 % (94-98); ARTERIAL BLOOD PCO2 45.7 mmHg (35-45); ARTERIAL BLOOD PH 7.34 (7.35-7.45); ARTERIAL BLOOD PO2 115.3 mmHg (80-100); ARTERIAL BLOOD TOTAL CO2 25.2 mmol/L (21-25)
[2020-06-15 02:15] LABS: ARTERIAL BLOOD FIO2 30%
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
[2020-06-15] MEDS ORDERED: ALBUTEROL SULFATE 0.083% NEB 2.5 MG/3 ML AMPUL NEB ONE (03:04)
[2020-06-15] MEDS: IPRATROPIUM/ALBUTEROL 0.5-2.5 MG/3 ML AMPUL NEB SCH ×3 (03:11→15:41)
[2020-06-15] MEDS: MIDAZOLAM HCL 50 MG/100 ML RTUINJ IV PRN ×2 (03:12→06:48)
[2020-06-15] MEDS: RINGERS SOLUTION,LACTATED 1,000 ML IV PRN ×6 (03:43→22:41)
[2020-06-15] MEDS: HEPARIN SOD (PORCINE) 5,000 UNIT/ML 1 ML VIAL SUBCUT SCH ×4 (03:46→22:42)
[2020-06-15] MEDS ORDERED: RINGERS SOLUTION,LACTATED 1,000 ML IV ONE (05:55)
--- NOTE | 2020-06-15 06:34 | RADIOLOGY REPORT (SQ) ---
EXAM DESCRIPTION: XR ABDOMEN 1 VIEW (KUB) COMPLETED DATE/TME: 06/15/2020 04:10 CLINICAL HISTORY: OGT placement COMPARISON: None. FINDINGS: Bowel: No dilated loops of large or small bowel. Peritoneum: No free intraperitoneal air identified. Moderate amount of stool. Bones: No acute osseous abnormalities. Other: NG tube with tip and side-port in the stomach. IMPRESSION: 1. NG tube in appropriate position.
[2020-06-15] MEDS: LORAZEPAM INJ 2 MG/1 ML VIAL IV PRN (07:33)
--- NOTE | 2020-06-15 07:49 | CDI QUERY ---
CDI Query CDI Review: Dear Provider, Please document in progress notes and D/C summary if you agree with the clinical findings: ACUTE TOXIC ENCEPHALOPATHY due to drug overdose / poisoning? ACUTE METABOLIC ENCEPHALOPATHY? COMA? OTHER? Clinical data: unresponsive drug overdose kit Huertas, Riya Ahumada, CDI [phone]
[2020-06-15 08:08] LABS: ABSOLUTE EOSINOPHILS # (AUTO) 0.1 10^3/uL (0.0-0.6); ABSOLUTE LYMPHOCYTES (AUTO) 1.7 10^3/uL (0.5-4.7); ABSOLUTE MONOCYTES (AUTO) 0.4 10^3/uL (0.1-1.4); ABSOLUTE NEUT (AUTO) 8.9 10^3/uL (1.7-8.2); BASOPHILS % (AUTO) 0.3 % (0-2); EOSINOPHILS % (AUTO) 0.7 % (0-6); HEMATOCRIT 35.6 % (36.0-47.0); HEMOGLOBIN 11.8 g/dL (12.0-15.5); LYMPHOCYTES % (AUTO) 15.4 % (13-45); MEAN CORPUSCULAR HEMOGLOBIN 26.1 pg (27.0-33.4); MEAN CORPUSCULAR HGB CONC 33.2 g/dL (32.0-36.0); MEAN CORPUSCULAR VOLUME 79 fl (80-97); MONOCYTES % (AUTO) 3.8 % (3-13); PLATELET COUNT 255 10^3/uL (150-450); RED BLOOD COUNT 4.52 10^6/uL (3.72-5.28); RED CELL DISTRIBUTION WIDTH 14.9 % (11.5-14.0); SEGMENTED NEUTROPHILS % (AUTO) 79.8 % (42-78); TOTAL CELLS COUNTED % (AUTO) 100 %; WHITE BLOOD COUNT 11.2 10^3/uL (4.0-10.5)
[2020-06-15 08:18] LABS: PARTIAL THROMBOPLASTIN TIME 30.5 SEC (23.5-35.8); PROTHROMBIN TIME 14.4 SEC (11.4-15.4)
--- NOTE | 2020-06-15 08:25 | PDOC CRITICAL CARE PROG REPORT ---
General Date:: 06/15/20 ICU Day:: 2 Ventilator Day:: 2 Hospital Day:: 2 Resuscitation Status: Full Code Events in the past 12 to 24 Hours:: Beginning to wake up but still feeling effects of OD medications Review of systems relevant to events:: Pulmonary, psychiatric Reason for ICU Addmission:: GCS 6, Intubated , OD flexeril - Medications: Medications reviewed and adjusted accordingly: Yes Vasopressors:: None Sedation:: PRN ativan. Physical Exam Vital Signs: Temp Pulse Resp BP Pulse Ox 95.9 F L 97 16 124/80 100 06/15/20 06:00 06/15/20 03:15 06/15/20 06:04 06/15/20 06:04 06/15/20 06:04 Intake & Output 06/14/20 06/15/20 06/16/20 06:59 06:59 06:59 Intake Total 1861 5 Output Total 375 Balance 1486 5 Weight 128.3 kg Weight/Height Weight 128.3 kg Height 5 ft 5 in General appearance: PRESENT: no acute distress, obese Head exam: PRESENT: atraumatic, normocephalic Eye exam: PRESENT: conjunctiva pink, EOMI, PERRLA. ABSENT: scleral icterus Ear exam: PRESENT: normal external ear exam Mouth exam: PRESENT: moist, tongue midline Neck exam: ABSENT: carotid bruit, JVD, lymphadenopathy, thyromegaly Respiratory exam: PRESENT: clear to auscultation karlee, other - ETT secretions.. ABSENT: rales, rhonchi, wheezes Cardiovascular exam: PRESENT: RRR. ABSENT: diastolic murmur, rubs, systolic murmur GI/Abdominal exam: PRESENT: normal bowel sounds, soft. ABSENT: distended, guarding, mass, organolmegaly, rebound, tenderness Rectal exam: PRESENT: deferred Gentrourinary exam: PRESENT: indwelling catheter Extremities exam: PRESENT: full ROM. ABSENT: calf tenderness, clubbing, pedal edema Musculoskeletal exam: PRESENT: normal inspection Neurological exam: PRESENT: altered, CN II-XII grossly intact Skin exam: PRESENT: dry, intact, warm. ABSENT: cyanosis, rash Tubes/Lines: PRESENT: Endotracheal Tube, Nasogastic Tube Laboratory/Radiographs Laboratory Results: 06/15/20 07:53 06/14/20 06/14/20 06/14/20 19:23 19:23 19:23 WBC 14.1 H RBC 4.56 Hgb 12.2 Hct 35.5 L MCV 78 L MCH 26.8 L MCHC 34.4 RDW 14.6 H Plt Count 262 Seg Neutrophils % 84.3 H Carbonic Acid HCO3/H2CO3 Ratio ABG pH ABG pCO2 ABG pO2 ABG HCO3 ABG O2 Saturation ABG Base Excess VBG pH VBG pCO2 VBG HCO3 VBG Base Excess FiO2 Sodium 132.7 L Potassium 3.4 L Chloride 100 Carbon Dioxide 21 L Anion Gap 12 BUN 8 Creatinine 0.58 Est GFR ( Amer) > 60 Glucose 504 H* Calcium 8.6 Total Bilirubin 0.7 AST 21 Alkaline Phosphatase 95 Total Protein 5.8 L Albumin 3.2 L TSH 2.53 Free T4 2.32 H Urine Color Urine Appearance Urine pH Ur Specific [place] Urine Protein Urine Glucose (UA) Urine Ketones Urine Blood Urine Nitrite Ur Leukocyte Esterase Urine WBC (Auto) Urine RBC (Auto) 06/14/20 06/14/20 06/15/20 19:23 21:22 01:47 WBC RBC Hgb Hct MCV MCH MCHC RDW Plt Count Seg Neutrophils % Carbonic Acid 1.38 H HCO3/H2CO3 Ratio 17:1 ABG pH 7.34 L ABG pCO2 45.7 H ABG pO2 115.3 H ABG HCO3 23.8 ABG O2 Saturation 97.9 ABG Base Excess -2.2 VBG pH 7.38 VBG pCO2 43.5 VBG HCO3 24.9 VBG Base Excess -0.3 FiO2 30% Sodium Potassium Chloride Carbon Dioxide Anion Gap BUN Creatinine Est GFR ( Amer) Glucose Calcium Total Bilirubin AST Alkaline Phosphatase Total Protein Albumin TSH Free T4 Urine Color STRAW Urine Appearance CLEAR Urine pH 5.0 Ur Specific [place] 1.006 Urine Protein NEGATIVE Urine Glucose (UA) NEGATIVE Urine Ketones TRACE H Urine Blood NEGATIVE Urine Nitrite NEGATIVE Ur Leukocyte Esterase NEGATIVE Urine WBC (Auto) 0 Urine RBC (Auto) 1 06/15/20 07:53 WBC 11.2 H RBC 4.52 Hgb 11.8 L Hct 35.6 L MCV 79 L MCH 26.1 L MCHC 33.2 RDW 14.9 H Plt Count 255 Seg Neutrophils % 79.8 H Carbonic Acid HCO3/H2CO3 Ratio ABG pH ABG pCO2 ABG pO2 ABG HCO3 ABG O2 Saturation ABG Base Excess VBG pH VBG pCO2 VBG HCO3 VBG Base Excess FiO2 Sodium Potassium Chloride Carbon Dioxide Anion Gap BUN Creatinine Est GFR ( Amer) Glucose Calcium Total Bilirubin AST Alkaline Phosphatase Total Protein Albumin TSH Free T4 Urine Color Urine Appearance Urine pH Ur Specific [place] Urine Protein Urine Glucose (UA) Urine Ketones Urine Blood Urine Nitrite Ur Leukocyte Esterase Urine WBC (Auto) Urine RBC (Auto) 06/14/20 06/15/20 19:23 00:48 Creatine Kinase 107 106 Impressions: Head CT 06/14/20 19:17 IMPRESSION: No acute intracranial abnormality. KUB X-Ray 06/15/20 00:00 IMPRESSION: 1. NG tube in appropriate position. All labs, radiographs, diagnostic studies and EKGs were personally reviewed: Yes In addition, reports of radiographic and diagnostic studies were read: Yes Assessment and Plan - Diagnosis (1) Toxic metabolic encephalopathy Is this a current diagnosis for this admission?: Yes Plan: We are acting on the report she OD'd on 's flexeril. She is having floppy muscle jerking C/W this. The , by phone, has confirmed a suicide video. I have asked behavioral health to see and she may be committed on this basis. (2) Aspiration into airway Qualifiers: Encounter type: initial encounter Qualified Code(s): T17.908A - Unspecified foreign body in respiratory tract, part unspecified causing other injury, initial encounter Is this a current diagnosis for this admission?: Yes Plan: She has a fair amount of secretions from her ETT. Considering how she came to the ED, an aspiration is likely. CXR is clear. Will still proceed to extubation. (3) Overdose Qualifiers: Encounter type: initial encounter Injury intent: accidental or unintentional Qualified Code(s): T50.901A - Poisoning by unspecified drugs, medicaments and biological substances, accidental (unintentional), initial encounter Is this a current diagnosis for this admission?: Yes Plan: This would make this the 2nd gesture in as many months meriting a psych evaluation. Plan Summary: Proceed to extubation when ready. Critical Time Critical Time (minutes): 45 Level of Care: ICU Anticipated discharge: Home Anticipated DC Timeframe: Other -: 1. The care of a critical patient is a dynamic process. This note is a fundraising sale representative synopsis but static in nature. The timeframe for treatments given in order is not necessarily the actual time these treatments may have been done. 2. This patient requires critical care secondary to ongoing requirements for therapy not offered or safe outside the critical care environment. Transfer to a lower level of care will result in altered life or limb morbidity and mortality. 3. Multidisciplinary rounds completed. 4. ABCDE bundle addressed.
[2020-06-15 08:32] LABS: ALBUMIN 3.3 g/dL (3.5-5.0); ALKALINE PHOSPHATASE 92 U/L (38-126); ANION GAP 9 (5-19); ASPARTATE AMINO TRANSFERASE 20 U/L (14-36); BLOOD UREA NITROGEN 7 mg/dL (7-20); CALCIUM 9.1 mg/dL (8.4-10.2); CARBON DIOXIDE 24 mmol/L (22-30); CHLORIDE 109 mmol/L (98-107); CHOLESTEROL 171.25 mg/dL (0-200); GLUCOSE 89 mg/dL (75-110); PHOSPHORUS 3.5 mg/dL (2.5-4.5); TRIGLYCERIDES 72 mg/dL (<150)
[2020-06-15 08:43] LABS: DIRECT LDL 121 mg/dL (<100)
--- NOTE | 2020-06-15 09:54 | RADIOLOGY REPORT (SQ) ---
EXAM DESCRIPTION: CHEST SINGLE VIEW IMAGES COMPLETED DATE/TIME: 06/15/2020 6:07 am REASON FOR STUDY: Respiratory Failure Intubated COMPARISON: 06/14/2020 chest films EXAM PARAMETERS: NUMBER OF VIEWS: One view. TECHNIQUE: Single frontal radiographic view of the chest acquired. RADIATION DOSE: NA LIMITATIONS: None. FINDINGS: LUNGS AND PLEURA: No opacities, masses or pneumothorax. No pleural effusion. MEDIASTINUM AND HILAR STRUCTURES: No masses. Contour normal. HEART AND VASCULAR STRUCTURES: Heart normal in size. Normal vasculature. BONES: No acute findings. HARDWARE: Endotracheal tube tip 2 cm above the pam. Nasogastric tube tip and side port in the sto mach. OTHER: No other significant finding. IMPRESSION: No focal infiltrates. Endotracheal tube tip 2 cm above the pam. Nasogastric tube tip and side port in the stomach TECHNICAL DOCUMENTATION: JOB ID: [id number] 2010 [employer] All Rights Reserved Reading location - IP/workstation name: [email or web address]
--- NOTE | 2020-06-15 17:50 | EKG REPORT ---
SEVERITY:- NORMAL ECG - SINUS RHYTHM : Confirmed by: Shefali Dominique 15-Jun-2020 17:49:12
[2020-06-16] MEDS: IPRATROPIUM/ALBUTEROL 0.5-2.5 MG/3 ML AMPUL NEB SCH ×3 (01:02→16:30)
[2020-06-16] MEDS: RINGERS SOLUTION,LACTATED 1,000 ML IV PRN ×6 (02:31→22:04)
[2020-06-16 04:40] LABS: ABSOLUTE EOSINOPHILS # (AUTO) 0.1 10^3/uL (0.0-0.6); ABSOLUTE LYMPHOCYTES (AUTO) 1.7 10^3/uL (0.5-4.7); ABSOLUTE MONOCYTES (AUTO) 0.8 10^3/uL (0.1-1.4); ABSOLUTE NEUT (AUTO) 14.3 10^3/uL (1.7-8.2); BASOPHILS % (AUTO) 0.2 % (0-2); EOSINOPHILS % (AUTO) 0.3 % (0-6); HEMATOCRIT 34.6 % (36.0-47.0); HEMOGLOBIN 11.4 g/dL (12.0-15.5); LYMPHOCYTES % (AUTO) 10.2 % (13-45); MEAN CORPUSCULAR HEMOGLOBIN 25.8 pg (27.0-33.4); MEAN CORPUSCULAR HGB CONC 32.9 g/dL (32.0-36.0); MEAN CORPUSCULAR VOLUME 79 fl (80-97); MONOCYTES % (AUTO) 4.5 % (3-13); PLATELET COUNT 242 10^3/uL (150-450); RED CELL DISTRIBUTION WIDTH 15.4 % (11.5-14.0); SEGMENTED NEUTROPHILS % (AUTO) 84.8 % (42-78); TOTAL CELLS COUNTED % (AUTO) 100 %; WHITE BLOOD COUNT 16.8 10^3/uL (4.0-10.5)
[2020-06-16 04:48] LABS: INTERNATIONAL RATION (INR) 1.07; PROTHROMBIN TIME 14.1 SEC (11.4-15.4)
[2020-06-16 04:49] LABS: PARTIAL THROMBOPLASTIN TIME 31.7 SEC (23.5-35.8)
[2020-06-16 04:55] LABS: CHOLESTEROL 150.21 mg/dL (0-200); PHOSPHORUS 4.2 mg/dL (2.5-4.5); TRIGLYCERIDES 132 mg/dL (<150)
[2020-06-16 05:00] LABS: ANION GAP 8 (5-19); BLOOD UREA NITROGEN 4 mg/dL (7-20); CALCIUM 8.7 mg/dL (8.4-10.2); CARBON DIOXIDE 23 mmol/L (22-30); CHLORIDE 109 mmol/L (98-107); GLUCOSE 93 mg/dL (75-110)
[2020-06-16 05:06] LABS: DIRECT LDL 92 mg/dL (<100)
[2020-06-16] MEDS: HEPARIN SOD (PORCINE) 5,000 UNIT/ML 1 ML VIAL SUBCUT SCH ×3 (06:18→22:02)
--- NOTE | 2020-06-16 08:18 | RADIOLOGY REPORT (SQ) ---
EXAM DESCRIPTION: CHEST SINGLE VIEW IMAGES COMPLETED DATE/TIME: 06/16/2020 6:23 am REASON FOR STUDY: Respiratory Failure Intubated COMPARISON: 06/15/2020 EXAM PARAMETERS: NUMBER OF VIEWS: One view. TECHNIQUE: Single frontal radiographic view of the chest acquired. RADIATION DOSE: NA LIMITATIONS: None. FINDINGS: LUNGS AND PLEURA: The patient has been extubated. NG tube removed. There is no diffuse b ilateral airspace disease new from yesterday. MEDIASTINUM AND HILAR STRUCTURES: No masses. Contour normal. HEART AND VASCULAR STRUCTURES: Heart size is stable. No central vascular congestion. BONES: No acute findings. HARDWARE: None in the chest. OTHER: No other significant finding. IMPRESSION: The patient has been extubated. Extensive bilateral airspace disease new from yesterday . TECHNICAL DOCUMENTATION: JOB ID: [id number] 2010 [email or web address]- All Rights Reserved Reading location - IP/workstation name: [email or web address]
[2020-06-16 10:39] LABS: ARTERIAL BLOOD BASE EXCESS -0.5 mmol/L; ARTERIAL BLOOD H2CO3 1.16 mmol/L (1.05-1.35); ARTERIAL BLOOD HCO3 23.9 mmol/L (20-24); ARTERIAL BLOOD O2 SATURATION 95.2 % (94-98); ARTERIAL BLOOD PCO2 38.5 mmHg (35-45); ARTERIAL BLOOD PH 7.41 (7.35-7.45); ARTERIAL BLOOD PO2 74.7 mmHg (80-100); ARTERIAL BLOOD TOTAL CO2 25.1 mmol/L (21-25)
[2020-06-16 10:40] LABS: ARTERIAL BLOOD FIO2 28%
--- NOTE | 2020-06-16 16:03 | EKG REPORT ---
SEVERITY:- BORDERLINE ECG - SINUS TACHYCARDIA BORDERLINE T ABNORMALITIES, DIFFUSE LEADS : Confirmed on behalf of: Shefali Dominique 16-Jun-2020 16:03:29
--- NOTE | 2020-06-16 18:06 | EKG REPORT ---
SEVERITY:- OTHERWISE NORMAL ECG - SINUS TACHYCARDIA BORDERLINE LEFT AXIS DEVIATION : Confirmed by: Shefali Dominique 16-Jun-2020 18:05:56
--- NOTE | 2020-06-16 18:09 | PDOC CRITICAL CARE PROG REPORT ---
General Date:: 06/16/20 ICU Day:: 1 Resuscitation Status: Full Code Events in the past 12 to 24 Hours:: Patient admitted yesterday for overdose of Flexeril. She remained obtunded this morning but is now awake and conversing. Review of systems relevant to events:: ICU day: 1 Neuro: Patient is now awake and speaking appropriately. Plan: Continue to monitor. She remains at risk for respiratory depression. Pulmonary: Extubated yesterday and has been breathing well. She was snoring and unresponsive this morning. An ABG was obtained and was normal. Continue to monitor respiratory status. Cardiovascular: Hemodynamically stable. Vital signs normal. Heme: CBC within normal limits. Mild leukocytosis. DVT prophylaxis: Heparin 5000 units subcu every 8. Renal: Renal panel normal. Continue IV fluids until able to take p.o. safely. Gastrointestinal: No acute issues. We can discontinue Protonix. Diet: Patient to remain n.p.o. for food but can have sips of clear liquid ID: No signs of infection. Barriers to discharge from ICU: If patient remains awake overnight, she can be transferred to medicine service or psychiatric [place] for further evaluation tomorrow. Reason for ICU Addmission:: GCS 6, Intubated , OD flexeril - Medications: Medications reviewed and adjusted accordingly: Yes Physical Exam Vital Signs: Temp Pulse Resp BP Pulse Ox 99.5 F 131 H 24 H 126/86 H 99 06/16/20 10:00 06/16/20 16:30 06/16/20 16:30 06/16/20 14:05 06/16/20 16:30 Intake & Output 06/15/20 06/16/20 06/17/20 06:59 06:59 06:59 Intake Total 1861 5815 1988 Output Total 375 3875 2350 Balance 1486 2040 -362 Weight 128.3 kg 128.1 kg Weight/Height Weight 128.1 kg Height 5 ft 5 in General appearance: PRESENT: no acute distress Head exam: PRESENT: atraumatic Eye exam: PRESENT: EOMI, PERRLA Ear exam: PRESENT: normal external ear exam Mouth exam: PRESENT: dry mucosa, neck supple Throat exam: ABSENT: tonsillar erythema, tonsillar exudate Neck exam: ABSENT: carotid bruit Respiratory exam: PRESENT: clear to auscultation karlee, other - Breath sounds limited by body habitus.. ABSENT: accessory muscle use Cardiovascular exam: PRESENT: RRR Pulses: PRESENT: +2 pedal pulses bilateral Vascular exam: PRESENT: normal capillary refill GI/Abdominal exam: PRESENT: hypoactive bowel sounds. ABSENT: ascites Extremities exam: ABSENT: joint swelling, pedal edema Musculoskeletal exam: PRESENT: full ROM, normal inspection. ABSENT: tenderness Neurological exam: PRESENT: alert, altered, awake, CN II-XII grossly intact Psychiatric exam: PRESENT: agitated Skin exam: PRESENT: normal color Laboratory/Radiographs Laboratory Results: 06/16/20 04:05 06/16/20 04:05 06/16/20 06/16/20 06/16/20 04:05 04:05 04:05 WBC 16.8 H RBC 4.40 Hgb 11.4 L Hct 34.6 L MCV 79 L MCH 25.8 L MCHC 32.9 RDW 15.4 H Plt Count 242 Seg Neutrophils % 84.8 H Carbonic Acid HCO3/H2CO3 Ratio ABG pH ABG pCO2 ABG pO2 ABG HCO3 ABG O2 Saturation ABG Base Excess FiO2 Sodium 140.4 Potassium 4.0 Chloride 109 H Carbon Dioxide 23 Anion Gap 8 BUN 4 L Creatinine 0.58 Est GFR ( Amer) > 60 Glucose 93 Calcium 8.7 Phosphorus 4.2 Magnesium 1.8 Ammonia Triglycerides 132 Cholesterol 150.21 LDL Cholesterol Direct 92 VLDL Cholesterol 26.0 HDL Cholesterol 41 06/16/20 06/16/20 04:05 10:20 WBC RBC Hgb Hct MCV MCH MCHC RDW Plt Count Seg Neutrophils % Carbonic Acid 1.16 HCO3/H2CO3 Ratio 20:1 ABG pH 7.41 ABG pCO2 38.5 ABG pO2 74.7 L ABG HCO3 23.9 ABG O2 Saturation 95.2 ABG Base Excess -0.5 FiO2 28% Sodium Potassium Chloride Carbon Dioxide Anion Gap BUN Creatinine Est GFR ( Amer) Glucose Calcium Phosphorus Magnesium Ammonia < 8.7 L Triglycerides Cholesterol LDL Cholesterol Direct VLDL Cholesterol HDL Cholesterol 06/14/20 06/15/20 06/15/20 19:23 00:48 07:53 Creatine Kinase 107 106 NT-Pro-B Natriuret Pep 202 H 06/15/20 06/15/20 06/16/20 07:53 13:06 04:05 Creatine Kinase 91 74 NT-Pro-B Natriuret Pep 899 H Impressions: Head CT 06/14/20 19:17 IMPRESSION: No acute intracranial abnormality. KUB X-Ray 06/15/20 00:00 IMPRESSION: 1. NG tube in appropriate position. Chest X-Ray 06/16/20 04:00 IMPRESSION: The patient has been extubated. Extensive bilateral airspace disease new from yesterday. All labs, radiographs, diagnostic studies and EKGs were personally reviewed: Yes In addition, reports of radiographic and diagnostic studies were read: Yes Assessment and Plan - Diagnosis (1) Overdose Qualifiers: Encounter type: initial encounter Injury intent: accidental or unintentional Qualified Code(s): T50.901A - Poisoning by unspecified drugs, medicaments and biological substances, accidental (unintentional), initial encounter Is this a current diagnosis for this admission?: Yes Plan: Patient successfully extubated and does not require respiratory support. She is now awake and communicating but is still a bit confused. We are anticipating resolution and discharge over the next 24 to 48 hours. Critical Time Critical Time (minutes): 60 Level of Care: ICU Anticipated discharge: Home, Acute Rehab - Patient will need psychiatric evaluation due to her suicide attempt. Anticipated DC Timeframe: within 48 hours -: 1. The care of a critical patient is a dynamic process. This note is a practice representative synopsis but static in nature. The timeframe for treatments given in order is not necessarily the actual time these treatments may have been done. 2. This patient requires critical care secondary to ongoing requirements for therapy not offered or safe outside the critical care environment. Transfer to a lower level of care will result in altered life or limb morbidity and mortality. 3. Multidisciplinary rounds completed. 4. ABCDE bundle addressed.
[2020-06-16] MEDS: LORAZEPAM INJ 2 MG/1 ML VIAL IV PRN (21:50)
[2020-06-16] MEDS ORDERED: DEXMEDETOMIDINE IN 0.9 % NACL 400 MCG/100 ML RTUPB IV ONE (22:23)
[2020-06-16] MEDS: DEXMEDETOMIDINE IN 0.9 % NACL 400 MCG/100 ML RTUPB IV PRN (22:25)
[2020-06-17] MEDS ORDERED: AMPICILLIN SOD/SULBACTAM 1.5 GM VIAL IV PRN (00:30)
[2020-06-17] MEDS: IPRATROPIUM/ALBUTEROL 0.5-2.5 MG/3 ML AMPUL NEB SCH ×4 (01:16→20:06)
[2020-06-17] MEDS ORDERED: AMPICILLIN SOD/SULBACTAM 1.5 GM VIAL ONE ×2 (01:27→05:12)
[2020-06-17] MEDS: AMPICILLIN SODIUM/SULBACTAM NA 1.5 GM in NORMAL SALINE 50 ML IV SCH ×4 (01:30→18:25)
[2020-06-17 01:56] LABS: ARTERIAL BLOOD BASE EXCESS -0.3 mmol/L; ARTERIAL BLOOD H2CO3 1.03 mmol/L (1.05-1.35); ARTERIAL BLOOD HCO3 23.1 mmol/L (20-24); ARTERIAL BLOOD O2 SATURATION 91.1 % (94-98); ARTERIAL BLOOD PCO2 34.1 mmHg (35-45); ARTERIAL BLOOD PH 7.45 (7.35-7.45); ARTERIAL BLOOD PO2 56.8 mmHg (80-100); ARTERIAL BLOOD TOTAL CO2 24.2 mmol/L (21-25)
[2020-06-17 01:57] LABS: ARTERIAL BLOOD FIO2 6L
[2020-06-17] MEDS: RINGERS SOLUTION,LACTATED 1,000 ML IV PRN (01:59)
[2020-06-17] MEDS ORDERED: FUROSEMIDE INJ/PF 40 MG/4 ML SDV IV ONE (02:22)
[2020-06-17] MEDS ORDERED: FUROSEMIDE INJ/PF 40 MG/4 ML SDV ONE (02:24)
[2020-06-17] MEDS: DEXMEDETOMIDINE IN 0.9 % NACL 400 MCG/100 ML RTUPB IV PRN ×3 (02:40→18:24)
--- NOTE | 2020-06-17 02:53 | RADIOLOGY REPORT (SQ) ---
EXAM DESCRIPTION: XR CHEST 1 VIEW COMPLETED DATE/TME: 06/17/2020 02:04 CLINICAL HISTORY: SOB COMPARISON: 06/16/2020 FINDINGS: Single frontal view of the chest. Tubes and lines: Leads overlie the chest. Cardiomediastinal silhouette: Stable Lungs: Mild interval increase in diffuse bilateral airspace opacities, right greater than left. No pneumothorax. Bones: Stable. Upper abdomen: Stable. IMPRESSION: 1. Mild interval increase in diffuse bilateral airspace opacities, right greater than left
[2020-06-17 04:25] LABS: ABSOLUTE BASOPHILS # (AUTO) 0.1 10^3/uL (0.0-0.2); ABSOLUTE LYMPHOCYTES (AUTO) 1.2 10^3/uL (0.5-4.7); ABSOLUTE MONOCYTES (AUTO) 0.7 10^3/uL (0.1-1.4); ABSOLUTE NEUT (AUTO) 16.3 10^3/uL (1.7-8.2); BASOPHILS % (AUTO) 0.3 % (0-2); EOSINOPHILS % (AUTO) 0.3 % (0-6); HEMATOCRIT 36.9 % (36.0-47.0); HEMOGLOBIN 12.2 g/dL (12.0-15.5); LYMPHOCYTES % (AUTO) 6.3 % (13-45); MEAN CORPUSCULAR HEMOGLOBIN 25.9 pg (27.0-33.4); MEAN CORPUSCULAR HGB CONC 33.2 g/dL (32.0-36.0); MEAN CORPUSCULAR VOLUME 78 fl (80-97); PLATELET COUNT 268 10^3/uL (150-450); RED BLOOD COUNT 4.72 10^6/uL (3.72-5.28); RED CELL DISTRIBUTION WIDTH 15.3 % (11.5-14.0); SEGMENTED NEUTROPHILS % (AUTO) 89.1 % (42-78); TOTAL CELLS COUNTED % (AUTO) 100 %; WHITE BLOOD COUNT 18.3 10^3/uL (4.0-10.5)
[2020-06-17 04:41] LABS: ALBUMIN 3.6 g/dL (3.5-5.0); ALKALINE PHOSPHATASE 111 U/L (38-126); ANION GAP 10 (5-19); ASPARTATE AMINO TRANSFERASE 20 U/L (14-36); BILIRUBIN,DIRECT 0.1 mg/dL (0.0-0.4); BILIRUBIN,TOTAL 0.9 mg/dL (0.2-1.3); BLOOD UREA NITROGEN 7 mg/dL (7-20); CALCIUM 9.1 mg/dL (8.4-10.2); CARBON DIOXIDE 28 mmol/L (22-30); CHLORIDE 102 mmol/L (98-107); GLUCOSE 111 mg/dL (75-110); PHOSPHORUS 5.3 mg/dL (2.5-4.5); POTASSIUM 3.8 mmol/L (3.6-5.0); TOTAL PROTEIN 6.9 g/dL (6.3-8.2)
[2020-06-17] MEDS: HEPARIN SOD (PORCINE) 5,000 UNIT/ML 1 ML VIAL SUBCUT SCH ×3 (05:15→22:00)
--- NOTE | 2020-06-17 17:43 | PDOC CRITICAL CARE PROG REPORT ---
General Date:: 06/17/20 ICU Day:: 2 Hospital Day:: 2 Resuscitation Status: Full Code Events in the past 12 to 24 Hours:: 06/16/2020: Patient admitted yesterday for overdose of Flexeril. She remained obtunded this morning but is now awake and conversing. 06/17/2020: Patient remained lethargic but arousable throughout the night and today. She had an episode of vomiting yesterday evening and today was hypoxemic, requiring supplemental O2 of 60 to 100%. Unasyn was started for possible aspiration pneumonia. Review of systems relevant to events:: ICU day: 2 Neuro: Patient is awake but lethargic. She awakens easily when sleeping and is at times confused. Plan: Continue to monitor. She remains at risk for respiratory depression. Pulmonary: Extubated yesterday and has been breathing well. She was snoring and unresponsive this morning. An ABG was obtained and was normal. Continue to monitor respiratory status. Cardiovascular: Hemodynamically stable. Vital signs normal. Heme: CBC within normal limits. Mild leukocytosis. DVT prophylaxis: Heparin 5000 units subcu every 8. Renal: Renal panel normal. Continue IV fluids until able to take p.o. safely. Gastrointestinal: No acute issues. We can discontinue Protonix. Diet: Patient to remain n.p.o. for food but can have sips of clear liquid ID: No signs of infection. Barriers to discharge from ICU: If patient remains awake overnight, she can be transferred to medicine service or psychiatric [place] for further evaluation tomorrow. Reason for ICU Addmission:: GCS 6, Intubated , OD flexeril - Medications: Medications reviewed and adjusted accordingly: Yes Physical Exam Vital Signs: Temp Pulse Resp BP Pulse Ox 100.9 F H 108 H 47 H 135/65 H 100 06/17/20 14:00 06/17/20 14:00 06/17/20 14:06 06/17/20 14:06 06/17/20 14:06 Intake & Output 06/16/20 06/17/20 06/18/20 06:59 06:59 06:59 Intake Total 5815 5218 153 Output Total 5095 6801 500 Balance 3167 -9083 -606 Weight 128.1 kg 131.4 kg Weight/Height Weight 131.4 kg Height 5 ft 5 in General appearance: PRESENT: mild distress, morbidly obese Head exam: PRESENT: atraumatic, normocephalic Eye exam: PRESENT: EOMI, PERRLA Ear exam: PRESENT: normal external ear exam Mouth exam: PRESENT: dry mucosa, neck supple Neck exam: ABSENT: JVD, lymphadenopathy Cardiovascular exam: PRESENT: RRR Pulses: PRESENT: normal carotid pulses, +2 pedal pulses bilateral Vascular exam: PRESENT: normal capillary refill GI/Abdominal exam: PRESENT: normal bowel sounds, soft Extremities exam: PRESENT: full ROM Musculoskeletal exam: PRESENT: full ROM, normal inspection Neurological exam: PRESENT: altered, oriented to person, oriented to place, CN II-XII grossly intact Psychiatric exam: PRESENT: agitated, anxious Skin exam: PRESENT: warm Laboratory/Radiographs Laboratory Results: 06/17/20 04:01 06/17/20 04:01 06/17/20 06/17/20 06/17/20 01:48 04:01 04:01 WBC 18.3 H RBC 4.72 Hgb 12.2 Hct 36.9 MCV 78 L MCH 25.9 L MCHC 33.2 RDW 15.3 H Plt Count 268 Seg Neutrophils % 89.1 H Carbonic Acid 1.03 L HCO3/H2CO3 Ratio 22:1 ABG pH 7.45 ABG pCO2 34.1 L ABG pO2 56.8 L ABG HCO3 23.1 ABG O2 Saturation 91.1 L ABG Base Excess -0.3 FiO2 6L Sodium 140.2 Potassium 3.8 Chloride 102 Carbon Dioxide 28 Anion Gap 10 BUN 7 Creatinine 0.75 Est GFR ( Amer) > 60 Glucose 111 H Calcium 9.1 Phosphorus 5.3 H Magnesium 1.7 Total Bilirubin 0.9 AST 20 Alkaline Phosphatase 111 Total Protein 6.9 Albumin 3.6 06/14/20 06/15/20 06/15/20 19:23 00:48 07:53 Creatine Kinase 107 106 NT-Pro-B Natriuret Pep 202 H 06/15/20 06/15/20 06/16/20 07:53 13:06 04:05 Creatine Kinase 91 74 NT-Pro-B Natriuret Pep 899 H 06/16/20 06/17/20 21:50 04:01 Creatine Kinase 86 NT-Pro-B Natriuret Pep 1340 H Impressions: Head CT 06/14/20 19:17 IMPRESSION: No acute intracranial abnormality. KUB X-Ray 06/15/20 00:00 IMPRESSION: 1. NG tube in appropriate position. Chest X-Ray 06/17/20 00:00 IMPRESSION: 1. Mild interval increase in diffuse bilateral airspace opacities, right greater than left All labs, radiographs, diagnostic studies and EKGs were personally reviewed: Yes In addition, reports of radiographic and diagnostic studies were read: Yes Assessment and Plan - Diagnosis (1) Overdose Qualifiers: Encounter type: initial encounter Injury intent: accidental or unintentional Qualified Code(s): T50.901A - Poisoning by unspecified drugs, medicaments and biological substances, accidental (unintentional), initial encounter Is this a current diagnosis for this admission?: Yes Plan: Patient remains lethargic, however she is not requiring intubation at this time. She is arousable and intermittently oriented. (2) Aspiration into airway Qualifiers: Encounter type: initial encounter Is this a current diagnosis for this admission?: Yes Plan: Patient started on Unasyn. Continue antibiotics for now. Monitor respiratory status closely. CXR in AM. Supportive care. Critical Time Critical Time (minutes): 45 Level of Care: ICU Anticipated discharge: Home Anticipated DC Timeframe: within 36 hours -: 1. The care of a critical patient is a dynamic process. This note is a enrollment eligibility representative synopsis but static in nature. The timeframe for treatments given in order is not necessarily the actual time these treatments may have been done. 2. This patient requires critical care secondary to ongoing requirements for therapy not offered or safe outside the critical care environment. Transfer to a lower level of care will result in altered life or limb morbidity and mortality. 3. Multidisciplinary rounds completed. 4. ABCDE bundle addressed.
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
[2020-06-18] MEDS: IPRATROPIUM/ALBUTEROL 0.5-2.5 MG/3 ML AMPUL NEB SCH ×7 (00:09→20:30)
[2020-06-18] MEDS: AMPICILLIN SODIUM/SULBACTAM NA 1.5 GM in NORMAL SALINE 50 ML IV SCH ×5 (01:12→18:39)
[2020-06-18 04:49] LABS: ABSOLUTE LYMPHOCYTES (AUTO) 1.1 10^3/uL (0.5-4.7); ABSOLUTE MONOCYTES (AUTO) 0.9 10^3/uL (0.1-1.4); ABSOLUTE NEUT (AUTO) 15.3 10^3/uL (1.7-8.2); EOSINOPHILS % (AUTO) 0.1 % (0-6); HEMATOCRIT 33.6 % (36.0-47.0); HEMOGLOBIN 11.2 g/dL (12.0-15.5); LYMPHOCYTES % (AUTO) 6.1 % (13-45); MEAN CORPUSCULAR HEMOGLOBIN 26.1 pg (27.0-33.4); MEAN CORPUSCULAR HGB CONC 33.3 g/dL (32.0-36.0); MEAN CORPUSCULAR VOLUME 78 fl (80-97); PLATELET COUNT 285 10^3/uL (150-450); RED BLOOD COUNT 4.28 10^6/uL (3.72-5.28); RED CELL DISTRIBUTION WIDTH 15.3 % (11.5-14.0); SEGMENTED NEUTROPHILS % (AUTO) 88.8 % (42-78); TOTAL CELLS COUNTED % (AUTO) 100 %; WHITE BLOOD COUNT 17.3 10^3/uL (4.0-10.5)
[2020-06-18 05:21] LABS: ALBUMIN 3.6 g/dL (3.5-5.0); ALKALINE PHOSPHATASE 138 U/L (38-126); ANION GAP 10 (5-19); ASPARTATE AMINO TRANSFERASE 36 U/L (14-36); BILIRUBIN,DIRECT 0.3 mg/dL (0.0-0.4); BILIRUBIN,TOTAL 1.2 mg/dL (0.2-1.3); BLOOD UREA NITROGEN 13 mg/dL (7-20); CARBON DIOXIDE 27 mmol/L (22-30); CHLORIDE 106 mmol/L (98-107); GLUCOSE 102 mg/dL (75-110); PHOSPHORUS 3.9 mg/dL (2.5-4.5); POTASSIUM 4.1 mmol/L (3.6-5.0); TOTAL PROTEIN 7.1 g/dL (6.3-8.2)
[2020-06-18] MEDS: HEPARIN SOD (PORCINE) 5,000 UNIT/ML 1 ML VIAL SUBCUT SCH ×3 (06:25→21:12)
[2020-06-18] MEDS: LORAZEPAM INJ 2 MG/1 ML VIAL IV PRN (06:33)
--- NOTE | 2020-06-18 06:53 | RADIOLOGY REPORT (SQ) ---
EXAM DESCRIPTION: CHEST SINGLE VIEW IMAGES COMPLETED DATE/TIME: 06/18/2020 5:49 am REASON FOR STUDY: Respiratory Failure Intubated COMPARISON: Multiple since 06/14/2020 EXAM PARAMETERS: NUMBER OF VIEWS: One view. TECHNIQUE: Single frontal radiographic view of the chest acquired. RADIATION DOSE: NA LIMITATIONS: None. FINDINGS: LUNGS AND PLEURA: Persistent dense consolidation throughout the right lung, mild ground-gl ass opacity throughout the left lung unchanged from 06/17/2020 and 06/16/2020. No pneumothorax. No pleural effusion. The MEDIASTINUM AND HILAR STRUCTURES: No masses. Contour normal. HEART AND VASCULAR STRUCTURES: Mild cardiomegaly BONES: No acute findings. HARDWARE: None in the chest. OTHER: No other significant finding. IMPRESSION: No change diffuse bilateral airspace disease right greater than left TECHNICAL DOCUMENTATION: JOB ID: [id number] 2010 [employer]- All Rights Reserved Reading location - IP/workstation name: [email or web address]
--- NOTE | 2020-06-18 19:59 | PDOC CRITICAL CARE PROG REPORT ---
General Date:: 06/18/20 ICU Day:: 3 Hospital Day:: 3 Resuscitation Status: Full Code Events in the past 12 to 24 Hours:: 06/16/2020: Patient admitted yesterday for overdose of Flexeril. She remained obtunded this morning but is now awake and conversing. 06/17/2020: Patient remained lethargic but arousable throughout the night and today. She had an episode of vomiting yesterday evening and today was hypoxemic, requiring supplemental O2 of 60 to 100%. Unasyn was started for possible aspiration pneumonia. 06/18/2020: Patient remained confused today but had very little O2 requirements and was less nauseous today. She required ultrasound to obtain a peripheral IV and pulled them out x2. Review of systems relevant to events:: ICU day: 3 Neuro: Patient less lethargic today. She does however remain quite confused and at times combative. Pulmonary: Patient breathing well. Her O2 requirements have lessened today. Cardiovascular: Hemodynamically stable. Vital signs normal. Heme: CBC within normal limits. Mild leukocytosis. DVT prophylaxis: Heparin 5000 units subcu every 8. Renal: Renal panel normal. Patient able to take p.o. IV fluids have been stopped. Gastrointestinal: No acute issues. Diet: Patient able to take p.o. ID: No signs of infection. Barriers to discharge from ICU: Medically, the patient has had a very good and stable day. She is breathing comfortably and is without nausea or vomiting. Vital signs remained stable. She is appropriate for transfer to a [facility]. Hospitalist team has received report. Reason for ICU Addmission:: GCS 6, Intubated , OD flexeril - Medications: Medications reviewed and adjusted accordingly: Yes Physical Exam Vital Signs: Temp Pulse Resp BP Pulse Ox 100.5 F H 138 H 40 H 134/78 H 96 06/18/20 10:00 06/18/20 16:29 06/18/20 16:29 06/18/20 12:06 06/18/20 19:29 Intake & Output 06/17/20 06/18/20 06/19/20 06:59 06:59 06:59 Intake Total 5218 360 100 Output Total 5208 1822 950 Balance -7574 -6026 -780 Weight 131.4 kg 126.3 kg 126.3 kg Weight/Height Weight 126.3 kg Height 5 ft 5 in General appearance: PRESENT: mild distress, morbidly obese Head exam: PRESENT: atraumatic, normocephalic Eye exam: PRESENT: EOMI, PERRLA Ear exam: PRESENT: normal external ear exam Mouth exam: PRESENT: moist Neck exam: PRESENT: full ROM. ABSENT: JVD, tenderness Respiratory exam: PRESENT: clear to auscultation karlee, symmetrical, unlabored. ABSENT: accessory muscle use, rales, rhonchi, stridor, tachypnea, wheezes Cardiovascular exam: PRESENT: RRR, +S1, +S2 Pulses: PRESENT: normal carotid pulses, normal radial pulses, normal femoral pulses Vascular exam: PRESENT: normal capillary refill GI/Abdominal exam: PRESENT: normal bowel sounds Extremities exam: PRESENT: full ROM. ABSENT: calf tenderness Musculoskeletal exam: PRESENT: full ROM, normal inspection Neurological exam: PRESENT: altered, awake, CN II-XII grossly intact, other - Intermittently confused Psychiatric exam: PRESENT: agitated, unusual affect Laboratory/Radiographs Laboratory Results: 06/18/20 04:18 06/18/20 04:18 06/18/20 06/18/20 04:18 04:18 WBC 17.3 H RBC 4.28 Hgb 11.2 L Hct 33.6 L MCV 78 L MCH 26.1 L MCHC 33.3 RDW 15.3 H Plt Count 285 Seg Neutrophils % 88.8 H Sodium 142.6 Potassium 4.1 Chloride 106 Carbon Dioxide 27 Anion Gap 10 BUN 13 Creatinine 0.72 Est GFR ( Amer) > 60 Glucose 102 Calcium 9.0 Phosphorus 3.9 Magnesium 2.2 Total Bilirubin 1.2 AST 36 Alkaline Phosphatase 138 H Total Protein 7.1 Albumin 3.6 06/14/20 06/15/20 06/15/20 19:23 00:48 07:53 Creatine Kinase 107 106 NT-Pro-B Natriuret Pep 202 H 06/15/20 06/15/20 06/16/20 07:53 13:06 04:05 Creatine Kinase 91 74 NT-Pro-B Natriuret Pep 899 H 06/16/20 06/17/20 06/18/20 21:50 04:01 04:18 Creatine Kinase 86 NT-Pro-B Natriuret Pep 1340 H 457 H Impressions: Head CT 06/14/20 19:17 IMPRESSION: No acute intracranial abnormality. KUB X-Ray 06/15/20 00:00 IMPRESSION: 1. NG tube in appropriate position. Chest X-Ray 06/18/20 04:00 IMPRESSION: No change diffuse bilateral airspace disease right greater than l eft All labs, radiographs, diagnostic studies and EKGs were personally reviewed: Yes In addition, reports of radiographic and diagnostic studies were read: Yes Assessment and Plan - Diagnosis (1) Overdose Qualifiers: Encounter type: initial encounter Injury intent: accidental or unintentional Qualified Code(s): T50.901A - Poisoning by unspecified drugs, medicaments and biological substances, accidental (unintentional), initial encounter Is this a current diagnosis for this admission?: Yes Plan: Patient is no longer lethargic however she does remain confused. Unclear if this is her baseline behavior.. (2) Aspiration into airway Qualifiers: Encounter type: initial encounter Is this a current diagnosis for this admission?: Yes Plan: Patient's respiratory status improved over the past 24 hours. No apparent respiratory distress. Appropriate from a respiratory point of view for transfer out of the ICU. Critical Time Critical Time (minutes): 65 Level of Care: ICU Anticipated discharge: Acute Rehab Anticipated DC Timeframe: within 48 hours -: 1. The care of a critical patient is a dynamic process. This note is a patient services representative synopsis but static in nature. The timeframe for treatments given in order is not necessarily the actual time these treatments may have been done. 2. This patient requires critical care secondary to ongoing requirements for therapy not offered or safe outside the critical care environment. Transfer to a lower level of care will result in altered life or limb morbidity and mortality. 3. Multidisciplinary rounds completed. 4. ABCDE bundle addressed.
[2020-06-18] MEDS ORDERED: IPRATROPIUM/ALBUTEROL 0.5-2.5 MG/3 ML AMPUL NEB PRN (20:28)
[2020-06-18] MEDS ORDERED: HALOPERIDOL DECANOATE INJ 100 MG/1 ML VIAL IM SCH (21:00)
[2020-06-18] MEDS ORDERED: HALOPERIDOL LACTATE INJ 5 MG/1 ML VIAL IM SCH (22:00)
[2020-06-19] MEDS: HEPARIN SOD (PORCINE) 5,000 UNIT/ML 1 ML VIAL SUBCUT SCH ×3 (05:51→23:07)
--- NOTE | 2020-06-19 09:35 | PDOC CONSULTATION ---
Consultation-Blank Consultation: Reason for Consult:Intentional overdose Consent Permissions: Unable to provide Patient arrived to [facility] ED via EMS after an intentional overdose on her 's prescription of Flexeril. Patient is unable to engage in evaluation; however, she has been extubated today and demonstrating signs of becoming alert. Patient's is at bedside. He showed clinician the patient's phone where she looked up if overdosing on Flexeril can kill you and allowed the clinician to watch the patient's video she recorded explaining her decision and saying goodbye to her loved ones. Clinical Presentation: Intentional overdose IVC Criteria per [place] GS 122C Dangerous to others Within the relevant past the individual No has inflicted or attempted to inflict or threatened to inflict serious bodily harm on another AND No that there is a reasonable probability that this conduct will be repeated. OR No has acted in such a way as to create a substantial risk of serious bodily harm to another AND No that there is a reasonable probability that this conduct will be repeated. OR No has engaged in extreme destruction of property AND NO that there is a reasonable probability that this conduct will be repeated. Previous episodes of dangerousness to others, when applicable, may be considered when determining reasonable probability of future dangerous conduct. Clear, cogent, and convincing evidence that an individual has committed a homicide in the relevant past is prima facie evidence of dangerousness to others. Dangerous to self Within the relevant past the individual has done any of the following: acted in such a way as to show ALL of the following: No The individual would be unable without care, supervision, and the continued assistance of others not otherwise available, to exercise self- control, judgment, and discretion in the conduct of the individual's daily responsibilities and social relations or to satisfy the individual's need for nourishment, personal or medical care, penitentiary, or self-protection and safety. AND No There is a reasonable probability of the individual suffering serious physical debilitation within the near future unless adequate treatment is given. A showing of behavior that is grossly irrational, of actions that the individual is unable to control, of behavior that is grossly inappropriate to the situation, or of other evidence of severely impaired insight and judgment shall create a prima facie inference that the individual is unable to care for himself or herself. OR YES has attempted suicide or threatened suicide AND YES that there is a reasonable probability of suicide unless adequate treatment is given Patient presented after intentional overdose of Flexeril. Patient had a suicide note in the form of a video. In the video, it is clear the patient is content with her choice of suicide, she explains and says goodbye to her loved ones. OR No has mutilated himself or herself or attempted to mutilate himself or herself AND No that there is a reasonable probability of serious self-mutilation unless adequate treatment is given. NOTE: Previous episodes of dangerousness to self, when applicable, may be considered when determining reasonable probability of physical debilitation, suicide, or self-mutilation. Impression\\plan: Patient is for IVC; Paperwork is signed, faxed to director of estate and placed in patient's chart. Patient is currently in ICU and was just extubated. She is still unable to engage in evaluation; however, patient recorded her "suicide note" to her loved ones. It is very clear the patient presents content and resolved to end her life. Patient's is at bedside and spoke with clinician and allowed the clinician to view the patient's video. Dr. Cardona was consulted to care management of this patient; attending physicians in agreement with recommendations and disposition.
--- NOTE | 2020-06-19 09:41 | PDOC CONSULTATION ---
Consultation-Blank Consultation: Reason for Consult: Intentional overdose Consent permissions: Unable to provide Patient has begun demonstrating hyperactive delirium with hallucinations and paranoia. Medication recommendations have been requested. Clinical presentation Delirium; hyperactive Intentional overdose Medication recommendations per [facility] contracted psychiatrist are as follows: Haldol 2.5mg twice daily Impression\plan: Patient is for continued IVC. Patient is currently in ICU and had begun demonstrating hyperactive delirium. She is still unable to engage in evaluation. It was very clear int eh patient's recorded suicide note,she was content and resolved to end her life. Medication recommendations have been provided. Dr. Cardona was consulted to care management of this patient; attending physicians in agreement with recommendations and disposition.
[2020-06-19] MEDS: DOXYCYCLINE HYCLATE 100 MG TABLET PO SCH ×2 (10:44→23:07)
[2020-06-19] MEDS: HALOPERIDOL 1 MG TABLET PO SCH ×2 (15:25→23:07)
--- NOTE | 2020-06-19 15:53 | PDOC CRITICAL CARE PROG REPORT ---
General Date:: 06/19/20 ICU Day:: 4 Hospital Day:: 5 Resuscitation Status: Full Code Events in the past 12 to 24 Hours:: 06/16/2020: Patient admitted yesterday for overdose of Flexeril. She remained obtunded this morning but is now awake and conversing. 06/17/2020: Patient remained lethargic but arousable throughout the night and today. She had an episode of vomiting yesterday evening and today was hypoxemic, requiring supplemental O2 of 60 to 100%. Unasyn was started for possible aspiration pneumonia. 06/18/2020: Patient remained confused today but had very little O2 requirements and was less nauseous today. She required ultrasound to obtain a peripheral IV and pulled them out x2. 06/19/2020: Patient less confused today but still disoriented at times. She has a sitter outside her door. She has had no significant complaints. Oxygenating well. Review of systems relevant to events:: ICU day: 4 Neuro: More awake and appropriate today. Still confused at times. Pulmonary: Patient breathing well. No longer requiring supplemental oxygen. Cardiovascular: Hemodynamically stable. Vital signs normal. Heme: CBC within normal limits. Mild leukocytosis. DVT prophylaxis: Heparin 5000 units subcu every 8. Renal: Renal panel normal. Patient able to take p.o. IV fluids have been stopped. Gastrointestinal: No acute issues. Diet: Patient able to take p.o. ID: No signs of infection. Barriers to discharge from ICU: Medically, the patient has had a very good and stable day. She is breathing comfortably and is without nausea or vomiting. Vital signs remained stable. She is appropriate for transfer to a medical floor. Hospitalist team has received report. Reason for ICU Addmission:: GCS 6, Intubated , OD flexeril - Medications: Medications reviewed and adjusted accordingly: Yes Physical Exam Vital Signs: Temp Pulse Resp BP Pulse Ox 98.7 F 125 H 20 144/83 H 98 06/19/20 08:14 06/19/20 01:42 06/19/20 01:42 06/19/20 13:18 06/19/20 01:47 Intake & Output 06/18/20 06/19/20 06/20/20 06:59 06:59 06:59 Intake Total 360 100 200 Output Total 1825 1450 Balance -1465 -1350 200 Weight 126.3 kg 122.9 kg Weight/Height Weight 122.9 kg Height 5 ft 5 in General appearance: PRESENT: no acute distress, morbidly obese Head exam: PRESENT: atraumatic, normocephalic Eye exam: PRESENT: EOMI, PERRLA Ear exam: PRESENT: normal external ear exam Mouth exam: PRESENT: moist Neck exam: ABSENT: carotid bruit Respiratory exam: PRESENT: clear to auscultation karlee, unlabored. ABSENT: accessory muscle use, rales, rhonchi, tachypnea, wheezes Cardiovascular exam: PRESENT: RRR, +S1, +S2 Pulses: PRESENT: normal carotid pulses, normal radial pulses Vascular exam: PRESENT: normal capillary refill GI/Abdominal exam: PRESENT: normal bowel sounds, soft Extremities exam: PRESENT: full ROM. ABSENT: joint swelling, pedal edema Musculoskeletal exam: PRESENT: ambulatory, full ROM, normal inspection Neurological exam: PRESENT: alert, awake, oriented to person, oriented to place, CN II-XII grossly intact Psychiatric exam: PRESENT: appropriate affect Focused psych exam: PRESENT: delusional Skin exam: PRESENT: intact, normal color. ABSENT: petechiae, rash, skin tears Laboratory/Radiographs Laboratory Results: 06/18/20 04:18 06/18/20 04:18 06/14/20 06/15/20 06/15/20 19:23 00:48 07:53 Creatine Kinase 107 106 NT-Pro-B Natriuret Pep 202 H 06/15/20 06/15/20 06/16/20 07:53 13:06 04:05 Creatine Kinase 91 74 NT-Pro-B Natriuret Pep 899 H 06/16/20 06/17/20 06/18/20 21:50 04:01 04:18 Creatine Kinase 86 NT-Pro-B Natriuret Pep 1340 H 457 H Impressions: Head CT 06/14/20 19:17 IMPRESSION: No acute intracranial abnormality. KUB X-Ray 06/15/20 00:00 IMPRESSION: 1. NG tube in appropriate position. Chest X-Ray 06/18/20 04:00 IMPRESSION: No change diffuse bilateral airspace disease right greater than left All labs, radiographs, diagnostic studies and EKGs were personally reviewed: Yes In addition, reports of radiographic and diagnostic studies were read: Yes Assessment and Plan - Diagnosis (1) Overdose Qualifiers: Encounter type: initial encounter Injury intent: accidental or unintentional Qualified Code(s): T50.901A - Poisoning by unspecified drugs, medicaments and biological substances, accidental (unintentional), initial encounter Is this a current diagnosis for this admission?: Yes Plan: Patient is no longer lethargic however she does remain confused. Unclear if this is her baseline behavior.. (2) Aspiration into airway Qualifiers: Encounter type: initial encounter Is this a current diagnosis for this admission?: Yes Plan: Patient's respiratory status improved over the past 24 hours. No apparent respiratory distress. No oxygen requirement. Appropriate from a respiratory point of view for transfer out of the ICU. Critical Time Critical Time (minutes): 30 Level of Care: ICU Anticipated discharge: SNF Anticipated DC Timeframe: within 24 hours -: 1. The care of a critical patient is a dynamic process. This note is a district sales representative synopsis but static in nature. The timeframe for treatments given in order is not necessarily the actual time these treatments may have been done. 2. This patient requires critical care secondary to ongoing requirements for therapy not offered or safe outside the critical care environment. Transfer to a lower level of care will result in altered life or limb morbidity and mortality. 3. Multidisciplinary rounds completed. 4. ABCDE bundle addressed.
--- NOTE | 2020-06-19 19:11 | PSYCHOLOGICAL NOTE ---
Psych Note - Psych Note Date seen by psych provider: 06/19/20 Psych Note: A chart review was conducted for patient today. Patient is still not medically cleared. Behavioral health will continue to follow up.
[2020-06-20] MEDS: HEPARIN SOD (PORCINE) 5,000 UNIT/ML 1 ML VIAL SUBCUT SCH ×3 (05:48→21:12)
[2020-06-20] MEDS: HALOPERIDOL 1 MG TABLET PO SCH ×3 (05:48→21:12)
[2020-06-20] MEDS: DOXYCYCLINE HYCLATE 100 MG TABLET PO SCH ×2 (10:36→21:12)
--- NOTE | 2020-06-20 12:03 | PDOC CRITICAL CARE PROG REPORT ---
General Date:: 06/20/20 Hospital Day:: 5 Resuscitation Status: Full Code Events in the past 12 to 24 Hours:: No IV medications, no IV. Needs psychiatry placement. Review of systems relevant to events:: Psychiatric. Reason for ICU Addmission:: Medically cleared. - Medications: Medications reviewed and adjusted accordingly: Yes Vasopressors:: None Sedation:: None Physical Exam Vital Signs: Temp Pulse Resp BP Pulse Ox 98.7 F 100 18 135/91 H 97 06/20/20 08:07 06/20/20 11:14 06/20/20 11:14 06/20/20 07:49 06/20/20 11:14 Intake & Output 06/19/20 06/20/20 06/21/20 06:59 06:59 06:59 Intake Total 100 700 Output Total 1450 Balance -1350 700 Weight 122.9 kg 116.8 kg Weight/Height Weight 116.8 kg Height 5 ft 5 in General appearance: PRESENT: no acute distress, cooperative, morbidly obese Head exam: PRESENT: atraumatic, normocephalic Eye exam: PRESENT: conjunctival injection Ear exam: PRESENT: normal external ear exam Mouth exam: PRESENT: moist, tongue midline Respiratory exam: PRESENT: clear to auscultation karlee. ABSENT: rales, rhonchi, wheezes Cardiovascular exam: PRESENT: RRR. ABSENT: diastolic murmur, rubs, systolic murmur GI/Abdominal exam: PRESENT: normal bowel sounds, soft. ABSENT: distended, guarding, mass, organolmegaly, rebound, tenderness Rectal exam: PRESENT: deferred Extremities exam: PRESENT: full ROM. ABSENT: calf tenderness, clubbing, pedal edema Musculoskeletal exam: PRESENT: normal inspection Neurological exam: PRESENT: alert, awake, oriented to person, oriented to place, oriented to time, oriented to situation, CN II-XII grossly intact. ABSENT: motor sensory deficit Psychiatric exam: PRESENT: appropriate affect, normal mood. ABSENT: homicidal ideation, suicidal ideation Skin exam: PRESENT: dry, intact, warm. ABSENT: cyanosis, rash Laboratory/Radiographs Laboratory Results: 06/18/20 04:18 06/18/20 04:18 06/14/20 06/15/20 06/15/20 19:23 00:48 07:53 Creatine Kinase 107 106 NT-Pro-B Natriuret Pep 202 H 06/15/20 06/15/20 06/16/20 07:53 13:06 04:05 Creatine Kinase 91 74 NT-Pro-B Natriuret Pep 899 H 06/16/20 06/17/20 06/18/20 21:50 04:01 04:18 Creatine Kinase 86 NT-Pro-B Natriuret Pep 1340 H 457 H Impressions: Head CT 06/14/20 19:17 IMPRESSION: No acute intracranial abnormality. KUB X-Ray 06/15/20 00:00 IMPRESSION: 1. NG tube in appropriate position. Chest X-Ray 06/18/20 04:00 IMPRESSION: No change diffuse bilateral airspace disease right greater than left All labs, radiographs, diagnostic studies and EKGs were personally reviewed: Yes In addition, reports of radiographic and diagnostic studies were read: Yes Assessment and Plan - Diagnosis (1) Toxic metabolic encephalopathy Is this a current diagnosis for this admission?: Yes Plan: Resolved (2) Aspiration into airway Qualifiers: Encounter type: initial encounter Is this a current diagnosis for this admission?: Yes Plan: Resolved (3) Overdose Qualifiers: Encounter type: initial encounter Injury intent: accidental or unintentional Qualified Code(s): T50.901A - Poisoning by unspecified drugs, medicaments and biological substances, accidental (unintentional), initial encounter Is this a current diagnosis for this admission?: Yes Plan: Needs in-patient psychiatric care. Plan Summary: Her IV has been taken out over 24 hours ago. No IV/IM meds. Ready for placement. No PO meds either. Critical Time Critical Time (minutes): 25 Level of Care: MEDICAL Anticipated discharge: Other Anticipated DC Timeframe: Other -: 1. The care of a critical patient is a dynamic process. This note is a commercial pest control representative synopsis but static in nature. The timeframe for treatments given in order is not necessarily the actual time these treatments may have been done. 2. This patient requires critical care secondary to ongoing requirements for therapy not offered or safe outside the critical care environment. Transfer to a lower level of care will result in altered life or limb morbidity and mortality. 3. Multidisciplinary rounds completed. 4. ABCDE bundle addressed.
--- NOTE | 2020-06-20 16:12 | PSYCHOLOGICAL NOTE ---
Psych Note - Psych Note Date seen by psych provider: 06/20/20 Time seen by psych provider: 16:00 Psych Note: Clinician was notified the patient is now medically cleared. Faxed patient's paperwork for placement consideration to Andre[facility] Ahum[facility]
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
[2020-06-21] MEDS: HALOPERIDOL 1 MG TABLET PO SCH ×3 (06:26→21:34)
[2020-06-21] MEDS: HEPARIN SOD (PORCINE) 5,000 UNIT/ML 1 ML VIAL SUBCUT SCH ×3 (06:26→21:32)
[2020-06-21 09:19] LABS: ABSOLUTE EOSINOPHILS # (AUTO) 0.5 10^3/uL (0.0-0.6); ABSOLUTE LYMPHOCYTES (AUTO) 1.6 10^3/uL (0.5-4.7); ABSOLUTE MONOCYTES (AUTO) 0.5 10^3/uL (0.1-1.4); ABSOLUTE NEUT (AUTO) 6.1 10^3/uL (1.7-8.2); BASOPHILS % (AUTO) 0.4 % (0-2); EOSINOPHILS % (AUTO) 5.8 % (0-6); HEMATOCRIT 34.6 % (36.0-47.0); HEMOGLOBIN 11.6 g/dL (12.0-15.5); LYMPHOCYTES % (AUTO) 18.7 % (13-45); MEAN CORPUSCULAR HEMOGLOBIN 26.2 pg (27.0-33.4); MEAN CORPUSCULAR HGB CONC 33.5 g/dL (32.0-36.0); MEAN CORPUSCULAR VOLUME 78 fl (80-97); MONOCYTES % (AUTO) 5.4 % (3-13); PLATELET COUNT 327 10^3/uL (150-450); RED BLOOD COUNT 4.43 10^6/uL (3.72-5.28); RED CELL DISTRIBUTION WIDTH 14.6 % (11.5-14.0); SEGMENTED NEUTROPHILS % (AUTO) 69.7 % (42-78); TOTAL CELLS COUNTED % (AUTO) 100 %; WHITE BLOOD COUNT 8.8 10^3/uL (4.0-10.5)
[2020-06-21 09:39] LABS: ANION GAP 11 (5-19); BLOOD UREA NITROGEN 14 mg/dL (7-20); CALCIUM 9.1 mg/dL (8.4-10.2); CARBON DIOXIDE 21 mmol/L (22-30); CHLORIDE 108 mmol/L (98-107); GLUCOSE 104 mg/dL (75-110); POTASSIUM 4.3 mmol/L (3.6-5.0)
[2020-06-21] MEDS: FLUTICASONE NASAL SPRAY 50 MCG/SPRY 120 SPRAY/16 GM NASL SCH ×2 (11:11→21:35)
[2020-06-21] MEDS: DOXYCYCLINE HYCLATE 100 MG TABLET PO SCH ×2 (11:11→21:34)
--- NOTE | 2020-06-21 18:56 | PDOC CONSULTATION ---
Consultation-Blank Consultation: Behavioral Health Consult: Continued placement efforts today which had just been started yesterday after being medically cleared. Presenting Problem: FULL Involuntary Commitment for suicidal ideation/attempt with video. Clinical Presentation: Suicidal Ideation Impression/Plan: Recommendation to maintain FULL Involuntary Commitment. Patient had significant suicide ideation/attempt with video. She was just medically cleared yesterday and placement efforts just started late last evening. Continued those placement efforts today without success. Will re evaluate patient in person tomorrow. Consulted with Dr. Cardona regarding the management and care of patient. Hospitalist aware of recommendation.
[2020-06-22] MEDS: HEPARIN SOD (PORCINE) 5,000 UNIT/ML 1 ML VIAL SUBCUT SCH ×2 (05:25→14:36)
[2020-06-22] MEDS: HALOPERIDOL 1 MG TABLET PO SCH ×3 (05:27→23:50)
[2020-06-22] MEDS: DOXYCYCLINE HYCLATE 100 MG TABLET PO SCH ×2 (10:16→23:50)
[2020-06-22] MEDS: FLUTICASONE NASAL SPRAY 50 MCG/SPRY 120 SPRAY/16 GM NASL SCH ×2 (10:17→23:50)
--- NOTE | 2020-06-22 19:48 | PDOC CONSULTATION ---
Consultation-Blank Consultation: Behavioral Health Consult: RE Evaluation Continued placement efforts today. Presenting Problem: FULL Involuntary Commitment for suicidal ideation/attempt with video. Clinical Presentation: Suicidal Ideation Impression/Plan: Recommendation to maintain FULL Involuntary Commitment. Patient had significant suicide ideation/attempt with video. Continued those placement efforts today without success, focused on [facility] since they had a bed available and patient already had COVID testing with results. Will re evaluate patient in person tomorrow. Consulted with Dr. Cardona regarding the management and care of patient. Hospitalist aware of recommendation.
--- NOTE | 2020-06-22 20:21 | PDOC PROGRESS REPORT ---
Subjective Date:: 06/22/20 Subjective:: NAEO Reason For Visit: OVERDOSE Physical Exam Vital Signs: Temp Pulse Resp BP Pulse Ox 97.7 F 102 H 18 129/69 H 99 06/22/20 19:15 06/22/20 19:15 06/22/20 19:15 06/22/20 19:15 06/22/20 19:15 Intake & Output 06/21/20 06/22/20 06/23/20 06:59 06:59 06:59 Intake Total 200 1260 740 Balance 200 1260 740 Weight 116.8 kg 116.8 kg 120.3 kg General appearance: PRESENT: no acute distress Eye exam: ABSENT: scleral icterus Mouth exam: PRESENT: moist Throat exam: ABSENT: post pharyngeal erythema Neck exam: ABSENT: JVD Respiratory exam: PRESENT: clear to auscultation karlee, unlabored Cardiovascular exam: PRESENT: RRR GI/Abdominal exam: PRESENT: normal bowel sounds, soft. ABSENT: tenderness Extremities exam: ABSENT: pedal edema Musculoskeletal exam: PRESENT: ambulatory Neurological exam: PRESENT: alert, awake Psychiatric exam: PRESENT: depressed, flat affect Skin exam: ABSENT: rash Results Laboratory Results: 06/21/20 08:40 06/21/20 08:40 06/14/20 06/15/20 06/15/20 19:23 00:48 07:53 Creatine Kinase 107 106 NT-Pro-B Natriuret Pep 202 H 06/15/20 06/15/20 06/16/20 07:53 13:06 04:05 Creatine Kinase 91 74 NT-Pro-B Natriuret Pep 899 H 06/16/20 06/17/20 06/18/20 21:50 04:01 04:18 Creatine Kinase 86 NT-Pro-B Natriuret Pep 1340 H 457 H Impressions: Head CT 06/14/20 19:17 IMPRESSION: No acute intracranial abnormality. KUB X-Ray 06/15/20 00:00 IMPRESSION: 1. NG tube in appropriate position. Chest X-Ray 06/18/20 04:00 IMPRESSION: No change diffuse bilateral airspace disease right greater than left Assessment and Plan - Diagnosis (1) Aspiration pneumonia Qualifiers: Aspiration pneumonia type: unspecified Laterality: bilateral Lung location: unspecified part of lung Qualified Code(s): J69.0 - Pneumonitis due to inhalation of food and vomit Is this a current diagnosis for this admission?: Yes (2) Intentional drug overdose Qualifiers: Encounter type: initial encounter Qualified Code(s): T50.902A - Poisoning by unspecified drugs, medicaments and biological substances, intentional self- harm, initial encounter Is this a current diagnosis for this admission?: Yes (3) Toxic metabolic encephalopathy Is this a current diagnosis for this admission?: Yes - Plan Summary Summary: Aspiration pneumonia Currently on doxycycline. Denies SOB, cough or fever. Intentional drug overdose Overdosed on Flexeril. Has been evaluated by psych and patient is on involuntary confinement. Awaiting placement to an inpatient psychiatric facility. Continue one-to-one observer and suicide precautions. Toxic metabolic encephalopathy Resolved. Patient is back to her normal mental status. - Time Time Spent with patient: 25-34 minutes Anticipated Discharge Disposition: Psych Hospital/Unit Anticipated Discharge Timeframe: within 24 hours
[2020-06-23] MEDS: HALOPERIDOL 1 MG TABLET PO SCH ×3 (05:46→23:03)
[2020-06-23] MEDS: FLUTICASONE NASAL SPRAY 50 MCG/SPRY 120 SPRAY/16 GM NASL SCH ×2 (09:41→23:03)
[2020-06-23] MEDS: DOXYCYCLINE HYCLATE 100 MG TABLET PO SCH (09:42)
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
--- NOTE | 2020-06-23 15:21 | PDOC PROGRESS REPORT ---
Subjective Date:: 06/23/20 Subjective:: NAEO. She feels okay. Reason For Visit: OVERDOSE Physical Exam Vital Signs: Temp Pulse Resp BP Pulse Ox 97.7 F 98 16 124/62 98 06/23/20 11:13 06/23/20 11:13 06/23/20 11:13 06/23/20 11:13 06/23/20 11:13 Intake & Output 06/22/20 06/23/20 06/24/20 06:59 06:59 06:59 Intake Total 1260 740 400 Balance 1260 740 400 Weight 116.8 kg 117.8 kg General appearance: PRESENT: no acute distress, cooperative Head exam: PRESENT: atraumatic Eye exam: ABSENT: scleral icterus Mouth exam: PRESENT: moist Throat exam: ABSENT: post pharyngeal erythema Neck exam: ABSENT: JVD Respiratory exam: PRESENT: unlabored Cardiovascular exam: PRESENT: RRR GI/Abdominal exam: PRESENT: normal bowel sounds, soft. ABSENT: tenderness Extremities exam: ABSENT: pedal edema Musculoskeletal exam: PRESENT: ambulatory Neurological exam: PRESENT: alert, awake Psychiatric exam: PRESENT: flat affect Focused psych exam: ABSENT: catatonic Skin exam: ABSENT: rash Results Laboratory Results: 06/21/20 08:40 06/21/20 08:40 06/14/20 06/15/20 06/15/20 19:23 00:48 07:53 Creatine Kinase 107 106 NT-Pro-B Natriuret Pep 202 H 06/15/20 06/15/20 06/16/20 07:53 13:06 04:05 Creatine Kinase 91 74 NT-Pro-B Natriuret Pep 899 H 06/16/20 06/17/20 06/18/20 21:50 04:01 04:18 Creatine Kinase 86 NT-Pro-B Natriuret Pep 1340 H 457 H Impressions: Head CT 06/14/20 19:17 IMPRESSION: No acute intracranial abnormality. KUB X-Ray 06/15/20 00:00 IMPRESSION: 1. NG tube in appropriate position. Chest X-Ray 06/18/20 04:00 IMPRESSION: No change diffuse bilateral airspace disease right greater than left Assessment and Plan - Diagnosis (1) Aspiration pneumonia Qualifiers: Aspiration pneumonia type: unspecified Laterality: bilateral Lung location: unspecified part of lung Qualified Code(s): J69.0 - Pneumonitis due to inhalation of food and vomit Is this a current diagnosis for this admission?: Yes (2) Intentional drug overdose Qualifiers: Encounter type: initial encounter Qualified Code(s): T50.902A - Poisoning by unspecified drugs, medicaments and biological substances, intentional self- harm, initial encounter Is this a current diagnosis for this admission?: Yes (3) Toxic metabolic encephalopathy Is this a current diagnosis for this admission?: Yes - Plan Summary Summary: Aspiration pneumonia Completed antibiotic treatment. Denies SOB, cough or fever. Intentional drug overdose Overdosed on Flexeril. Has been evaluated by psych and patient is on involuntary confinement. Awaiting placement to an inpatient psychiatric f acility. Continue one-to-one observer and suicide precautions. Toxic metabolic encephalopathy Resolved. Patient is back to her normal mental status. Dispo: patient is medically cleared for discharge. She is awaiting psychiatric placement. Covid-19 screening test negative. - Time Time Spent with patient: 15-24 minutes Anticipated Discharge Disposition: Psych Hospital/Unit Anticipated Discharge Timeframe: within 24 hours
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
[2020-06-24 01:46] VITALS: BP 124/62
== END 2020-06-24 00:58 | DRG 917 ==
LOC: ER 19:05 → EH 23:44 → ICU 06-15 02:53 → 4S 06-21 03:47 → 2N 06-22 18:41 → UNDODISIN 06-24 00:58
PROVIDERS: ADMIT Anesthesiology; ATTEND Hospitalist
PROC: 0BH17EZ Insertion of Endotracheal Airway into Trachea, Via Natural or Artificial Opening (ICD-10-PCS; principal; 2020-06-14)
PROC: 5A1935Z Respiratory Ventilation, Less than 24 Consecutive Hours (ICD-10-PCS; 2020-06-14)
DX: T48.1X2A Poisoning by skeletal muscle relaxants [neuromuscular blocking agents], intentional self-harm, initial encounter (principal); R40.2212 Coma scale, best verbal response, none, at arrival to emergency department; R40.2112 Coma scale, eyes open, never, at arrival to emergency department; G92 Toxic encephalopathy; J69.0 Pneumonitis due to inhalation of food and vomit; Y92.013 Bedroom of single-family (private) house as the place of occurrence of the external cause; E87.6 Hypokalemia; R40.2352 Coma scale, best motor response, localizes pain, at arrival to emergency department; Z20.828 Contact with and (suspected) exposure to other viral communicable diseases
CPT/HCPCS: 36415; 70450; 71045; 74018; 80048; 80053; 80061; 80307; 81001; 81025; 82140; 82550; 82803; 82962; 83036; 83735; 83880; 84100; 84439; 84443; 85025; 85610; 85730; 87635; 93005; 93010; 94002; 94003; 96361; 96374; 99285; 99291; 99292; C9803; J0295; J0330; J1630; J1644; J1940; J2060; J2250; J2310; J3480; J3490; J7120